=== PATIENT | female | born 2000 | race Caucasian/White ===

== ENCOUNTER 2022-01-14 19:14 | Emergency (ER) | payer MEDICAID, SELFPAY ==
[2022-01-14 19:18] VITALS: BP 135/81; PULSE 97; RESP 16; TEMP 36.9; O2SAT 100; BMI 29.3
--- NOTE | 2022-01-14 19:37 | CRLHL7_ITS ---
For Patients: As a result of the Cures Act, medical imaging exams and procedure reports are released immediately into your electronic medical record. You may view this report before your referring provider. If you have questions, please contact your health care provider. INDICATION: Patellar subluxation. COMPARISON: None. TECHNIQUE: Left knee 3 views. IMPRESSION: No acute fracture. Alignment is within normal limits. Joint spaces are maintained. Soft tissues are unremarkable. Dictated by Vin Link MD @ 01/14/2022 8:09:28 PM (Electronically Signed)
--- NOTE | 2022-01-14 19:38 | ED_ITS ---
HPI - Extremity Injury (Lower) General Chief Complaint: Extremity Pain/Injury, Lower Stated Complaint: Knee Injury Time Seen by Provider: 01/14/22 19:19 History of Present Illness HPI Narrative: This 21-year-old female comes in with an injury to her left knee that occurred just prior to arrival. She states that she was in the process of beginning to sit on a swivel chair. As she was flexing her knees she heard a pop and had sudden onset of pain and fell to the floor. She was able to get up and ambulate here but complains of pain in the medial aspect of her left patella. Related Data Previous Rx's Medication Instructions Recorded escitalopram oxalate 10 mg tablet 10 mg PO QDAY #90 tabs 01/13/22 lorazepam 1 mg tablet 1 mg PO BID PRN anxiety #20 tabs 01/13/22 Allergies Allergy/AdvReac Type Severity Reaction Status Date / Time No Known Drug Allergies Allergy Verified 01/14/22 19:25 Review of Systems Status of ROS: Reports: 10 or more systems reviewed and unremarkable except as noted in History and below Narrative: Constitutional: No fevers, no weight gain or loss. Eyes: No discharge. No vision changes. HENT: No congestion, no sore throat, no ear pain. Cardiovascular: No chest pain, no palpitations. Respiratory: No shortness of breath, no wheezes, no cough. Gastrointestinal: No abdominal pain, no vomiting, no diarrhea. Genitourinary: No dysuria, no hematuria. Musculoskeletal: Left knee pain as described above. Skin: No rashes, no pruritis. Neurological: No dizziness, weakness, sensory change, speech change. Endo/Heme/Allergies: No bruising or bleeding. No polydipsia. Pysch: no suicidality, no anxiety, no insomnia. All other systems reviewed and are negative. [facility] Medical History (Updated 01/14/22 @ 19:42 by Liban Leal MD) Panic attacks Exam Narrative: Exam Narrative: Constitutional: Well-developed, well-nourished, no acute distress. HEENT: Normocephalic, atraumatic. Neck: Normal range of motion. Nontender. Supple. Heart: Intact distal pulses. Lungs: No chest discomfort. No wheezes, rhonchi, or rales. Abdomen: Nontender. Back: Normal range of motion. Extremities: Left knee shows no sign of deformity or joint effusion. The patient has discomfort and was not cooperative to do a good ligament exam. She has tenderness on the medial aspect of the left patella and this is reproduced when putting some lateral stress on the patella. Skin: Intact. No rash. Warm. No erythema or pallor. Neurologic: No altered sensation. No weakness. Alert and oriented. Psychiatric: No suicidality. No anxiety or depression. No insomnia. Nursing notes and vitals signs are reviewed. Const: Vital Signs, click to edit/add: Vital Signs - 24 hr 01/14/22 19:18 Temperature 98.4 F Pulse Rate [Right Pulse Oximeter] 97 Respiratory Rate 16 Blood Pressure [Ri ght Upper Arm] 135/81 Pulse Oximetry 100 Oxygen Delivery Me thod Room Air Course Vital Signs Vital signs: Initial Vital Signs Temperature 98.4 F 01/14/22 19:18 Temperature Source Temporal Artery Scan 01/14/22 19:18 Pulse Rate 97 01/14/22 19:18 Respiratory Rate 16 01/14/22 19:18 Blood Pressure 135/81 01/14/22 19:18 Blood Pressure Mean 99 01/14/22 19:18 Blood Pressure Position Sitting 01/14/22 19:18 Pulse Oximetry 100 01/14/22 19:18 Oxygen Delivery Method 01/14/22 19:18 Vital Signs Temperature 98.4 F 01/14/22 19:18 Pulse Rate 97 01/14/22 19:18 Respiratory Rate 16 01/14/22 19:18 Blood Pressure 135/81 01/14/22 19:18 Pulse Oximetry 100 01/14/22 19:18 Oxygen Delivery Method 01/14/22 19:18 Temperature 98.4 F 01/14/22 19:18 Pulse Rate 97 01/14/22 19:18 Respiratory Rate 16 01/14/22 19:18 Blood Pressure 135/81 01/14/22 19:18 Pulse Oximetry 100 01/14/22 19:18 Oxygen Delivery Method 01/14/22 19:18 MDM - Extremity Injury (Lower) MDM Narrative Medical decision making narrative: This patient comes in with an injury to her left knee as described above. The mechanism of injury and her report of symptoms sound suspicious for a patellar subluxation. She was able to get up and ambulate here. She does have some tenderness when stressing her patella laterally at full extension of the knee. She may have stretched her medial retinaculum. X-ray imaging shows no acute findings by my review. Imaging Data XR L Knee: Radiologist's impression: No acute fracture. Alignment is within normal limits. Joint spaces are maintained. Soft tissues are unremarkable. Discharge Plan Discharge Clinical Impression: Patellar subluxation Patient Disposition: Home, Self-Care Condition: Stable Additional Instructions: Increase activity as tolerated. Use medication as needed and directed. If symptoms are recurrent follow-up with orthopedic clinic or return to emergency department. Prescriptions: No Action escitalopram oxalate 10 mg tablet 10 mg PO QDAY Qty: 90 0RF lorazepam 1 mg tablet 1 mg PO BID PRN (Reason: anxiety) Qty: 20 0RF Follow Up/Referrals: Vin Reyes MD [Primary Care Provider] - Stand Alone Forms: [facility] [place] Info Instructions
[2022-01-14 21:08] VITALS: BP 135/81; PULSE 97; RESP 16; TEMP 36.9
== END 2022-01-14 21:08 | disposition home or self-care (01) ==
LOC: ED 20:19
PROVIDERS: Emergency Provider Emergency Medicine Emergency Medical Services; PCP Family Medicine
DX: S83.001A Unspecified subluxation of right patella, initial encounter (principal)
CPT/HCPCS: 73562; 99283; 99284

== ENCOUNTER 2023-02-13 11:13 | Outpatient (CLI) | payer MEDICAID, SELFPAY | END 2023-02-13 11:14 | disposition home or self-care (01) | PROVIDERS: PCP Family Medicine; Visit Provider Family Medicine | DX: R51.9 Headache, unspecified (principal); R53.83 Other fatigue | CPT/HCPCS: 80048; 80061; 84439; 84443 ==

== ENCOUNTER 2023-09-04 10:53 | Outpatient (CLI) | payer BC, SELFPAY | END 2023-09-04 10:54 | disposition home or self-care (01) | PROVIDERS: PCP Nurse Practitioner Family; Visit Provider Nurse Practitioner Family | DX: Z00.00 Encounter for general adult medical examination without abnormal findings (principal); R10.9 Unspecified abdominal pain; R19.7 Diarrhea, unspecified; Z13.6 Encounter for screening for cardiovascular disorders | CPT/HCPCS: 80053; 80061; 82150; 83690; 84443; 85025; 86364 ==

== ENCOUNTER 2024-11-11 13:13 | Outpatient (CLI) | payer BC, SELFPAY | END 2024-11-11 13:14 | disposition home or self-care (01) | PROVIDERS: PCP Nurse Practitioner Family; Visit Provider Nurse Practitioner Family | DX: E83.52 Hypercalcemia (principal); R74.8 Abnormal levels of other serum enzymes; R63.4 Abnormal weight loss; D64.9 Anemia, unspecified | CPT/HCPCS: 80050; 80053; 82306; 83970; 84439; 84443; 85025 ==

== ENCOUNTER 2024-11-20 18:31 | Emergency (ER) | payer BC, SELFPAY ==
--- OUTSIDE RECORDS SUMMARY | 2024-11-20 18:33 | XMS_ITS | Encounter Summary ---
Author Organization [facility] Address [address] [address] Phone Care Team Providers Care Middleware Consultant Name Role Phone Unavailable Primary Care Provider Unavailabl e Encounter Details Date Type Department Care Team (Late st Contact Info) Description 10/20/2024 Telephone [facility] [address] [phone] Amara Gracia PA-C [address] [place] [address] Social History Tobacco Use Types Packs/Day Years Used Date Smoking Tobacco: Never Smokeless Tobacco: Never Alcohol Use Standard Drinks/Week Comments Not Currently 0 (1 standard drink = 0.6 oz pur e alcohol) socially PHQ-2 Answer Date Recorded PHQ-2 Total 0 04/22/2024 Comments Unknown Sex and Gender Information Value Date Recorded Sex Assigned at Not on file 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 If they are giving her all 16 tablets/month she can try taking this every other day as a preventative (can still take on her off day if needed) to see if this helps control her headaches better. Otherwise, if she does not feel that the Nurtec is working and the headaches are not managed she should make a follow-up appointment so that we can discuss alternatives. Thanks. * Telephone Encounter - Judit Thomson CMA - 10/20/2024 1:38 PM CDT Reviewed patient chart. Last OV 04/22/2024 (EF), return in 1 year. No follow up apt made. Continue Nurtec as needed. Called patient. She feels that her migraines doesn't go away. She has had neck pain, and is throwing up a lot more. She is having about 5 a month but have been more painful. Usually in the frontal lobe area. She is also having more pain behind the eyes. The are lasting for more than 24 hours. She has been trying to stay hydrated. Her main question is can she take more than 1 Nrutec at a time. She has taken 1 Nurtec today. Informed her that she cannot take more than 1 in a 24 hour period. She will go to the ER if migraines get worse. If migraines keep getting worse she will make a follow up apt with Amara. She verbalized understanding. All questions were answered, and she had no other concerns at this time. * Telephone Encounter - Judit Thomson CMA - 10/20/2024 1:38 PM CDT Patient called and requested a call back regarding questions she has about her migraines. Call back number [phone] documented in this encounter Plan of Treatment Not on file documented as of this encounter Visit Diagnoses Not on filedocumented in this encounter
--- OUTSIDE RECORDS SUMMARY | 2024-11-20 18:33 | XMS_ITS | Clinical Summary ---
Author Organization [email or web address] Address [address] [place] [address] Care Team Providers Care Cashier Greeter Name Role Phone Nonstaff, Doctor Unavailable Unavailable Vin Reyes MD Primary Care Provider + Allergies No known active allergies Medications triamcinolone (ARISTOCORT) 0.1 % ointmentIndicat ions:Rash Apply topically to affected area(s) 3 times daily. 30 g 9 Active escitalopram oxalate (Lexapro) 10 mg tabletIndicatio ns:anxiety with depression Take 10 mg by mouth once daily. Active Active Problems Problem Noted Date Diagnosed Date Adjustment disorder with anxiety 11/23/2008 Encounters Date Type Department Care Team Description 11/14/2024 Transcribe Orders [facility] [place] [phone] Aaliyah Woodson, WHITNEY from Last 3 Months Family History Relation Name Status Comments Father Alive Mother Alive Social History Tobacco Use Types Packs/Day Years Used Date Smoking Tobacco: Never Smokeless Tobacco: Never Tobacco Cessation:Counseling Given: Yes Alcohol Use Standard Drinks/Week Comments Yes 1 (1 standard drink = 0.6 oz pur e alcohol) Comments No Sex and Gender Information Value Date Recorded Sex Assigned at Not on file 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 Gender Identity Not on file Sexual Orientation Not on file 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 Not on file Not on file Not on file Obstetrics History Last Filed Vital Signs Vital Sign Reading Time Taken Comments Blood Pressure 123/80 11/27/2020 9:35 PM CDT Pulse 85 11/27/2020 9:35 PM CDT Temperature 37.6 C (99.6 F) 11/27/2020 8:00 PM CDT Respiratory Rate 18 11/27/2020 9:35 PM CDT Oxygen Saturation 100% 11/27/2020 9:35 PM CDT Inhaled Oxygen Concentration - - Weight 93.8 kg (206 lb 14.4 oz) 11/27/2020 8:27 PM CDT Height 158.8 cm (5' 2.5) 11/27/2020 8:26 PM CDT Body Mass Index 37.24 11/27/2020 8:26 PM CDT Plan of Treatment Upcoming Encounters Date Type Department Care Team (Late st Contact Info) Description 03/03/2025 1:10 PM WIRE PHOTO OPERATOR Telemedicine [facility] [address] [place], [place] [id number] Tarik Allred MD [address] [facility] [address] [place], [place] [id number] Health Maintenance Due Date Last Done Comments Tetanus booster 07/07/2010 Depression screening for age 12+ 2011 HIV for age 15-65 07/07/2014 HPV series for age 9-26 (1 - 3-dose series) 07/07/2014 Hepatitis C screening for ag e 18-79 07/07/2017 Hepatitis B series for 19+ ( 1 of 3 - 19+ 3-dose series) 07/07/2018 BMI (ht and wt on same day) for age 18+ 09/08/2019 09/07/2018 COVID-19 vaccine series ( season) 2023 Influenza Vaccine (#1) 2024 Pap test for age 21-65 09/03/2026 4, 09/04/2023 Pneumococcal series for age 6-49 Aged Out No longer eligible b ased on patient's age to complete this topic Procedures Procedure Name Priority Date/Time Associated Diagnosis Comments HPV HIGH RISK Routine 09/04/2023 11:00 AM CDT from Last 3 Months or Most Recently Relevant to Health Maintenance Results * (ABNORMAL) HPV HIGH RISK (09/04/2023 11:00 AM CDT) TYPE 16 Negative Negative 09/08/2023 2:09 PM CDT [facility] TYPE 18 Negative Negative 09/08/2023 2:09 PM CDT [facility] OTHER HIGH RISK TYPES Positive(A) Negative 09/08/2023 2:09 PM CDT [facility] Other (Cervical/Vagina l) 09/04/2023 11:00 AM CDT 09/07/2023 10:05 AM CDT Narrative [facility] - 09/08/2023 2:09 PM CDT Specimen is positive for the DNA of any one of, or combination of, the following high risk HPV types: 31, 33, 35, 39, 45, 51, 52, 56, 58, 59, 66, 68. HPV types 16 and 18 DNA were undetectable or below the pre-set threshold. Methodology: Chang Jamal 4800 HPV Test us Aaliyah Woodson NP MICROBIOLOGY Final Resu lt [facility] [address] [place] [phone], from Last 3 Months or Most Recently Relevant to Health Maintenance Insurance [facility] [phone] (Home) ATTN: DIANN HINSON [phone] [id number] [employer] Care Teams Cashier Greeter Relationship Specialty Start Date End Date Vin Reyes MD [address] [place] [address] PCP - General Family Practice 11/27/20 Nonstaff, Doctor NON STAFF DOCTOR 09/01/18
--- OUTSIDE RECORDS SUMMARY | 2024-11-20 18:33 | XMS_ITS | Clinical Summary ---
Author Organization [facility] Address [address] [address] Phone Care Team Providers Care Dry Janitor Name Role Phone Unavailable Primary Care Provider Unavailabl e Allergies Active Allergy Reactions Criticality Noted Date Comments Sumatriptan Anaphylaxis High 09/04/2023 Medications escitalopram (Lexapro) 10 MG tablet Take 10 mg by mouth one time a day. (Taking as needed) 2 Active rimegepant (Nurtec) 75 mg Tablet DisintegratingIn dications:Chroni c migraine without aura without status migrainosus, not intractable Take 1 Tablet by mouth one time as needed for Migraine for up to 1 dose. 16 Tablet 11 5 Active Active Problems Problem Noted Date Diagnosed Date Vertigo 09/18/2023 Overview (09/18/2023): She has a history of vertigo in 2017 or 2018. Back then, her symptoms were provoked by turning her head and she felt a severe sense of motion as if she was going to fall over. Over the past 2 months, her symptoms have recurred and she describes a sense of motion as well as lightheadedness. There is no associated chest pain, shortness of breath or diaphoresis, however she may occasionally feel like her heart is racing but thinks this may be because she is nervous about how she is feeling. No known triggers or positional factors. Symptoms are relatively brief and last up to 5 minutes in duration. This may occur 1-2 times per week. No associated nausea or headaches. She may have had a cold around the time of symptom recurrence, but otherwise no illnesses or changes to her general health. She stays hydrated and drinks at least 64 ounces of water a day. No falls or head trauma. No prior brain imaging. Today we discussed her symptoms. They do not seem consistent with orthostatic hypotension. They are not positional and feel different than her prior symptoms of vertigo in . No associated headache, therefore migrainous vertigo seems unlikely. Symptoms are brief, therefore as needed medication such as meclizine will not likely be useful. We discussed obtaining brain imaging since she has never had this done to evaluate for any structural cause of symptoms. If imaging is normal, will consider referral to ENT and/or PT for further evaluation and treatment recommendations. Assessment & Plan (09/18/2023 11:07 AM CDT): She has a history of vertigo in 2017 or 2018. Back then, her symptoms were provoked by turning her head and she felt a severe sense of motion as if she was going to fall over. Over the past 2 months, her symptoms have recurred and she describes a sense of motion as well as lightheadedness. There is no associated chest pain, shortness of breath or diaphoresis, however she may occasionally feel like her heart is racing but thinks this may be because she is nervous about how she is feeling. No known triggers or positional factors. Symptoms are relatively brief and last up to 5 minutes in duration. This may occur 1-2 times per week. No associated nausea or headaches. She may have had a cold around the time of symptom recurrence, but otherwise no illnesses or changes to her general health. She stays hydrated and drinks at least 64 ounces of water a day. No falls or head trauma. No prior brain imaging. Today we discussed her symptoms. They do not seem consistent with orthostatic hypotension. They are not positional and feel different than her prior symptoms of vertigo in . No associated headache, therefore migrainous vertigo seems unlikely. Symptoms are brief, therefore as needed medication such as meclizine will not likely be useful. We discussed obtaining brain imaging since she has never had this done to evaluate for any structural cause of symptoms. If imaging is normal, will consider referral to ENT and/or PT for further evaluation and treatment recommendations. -Brain MRI/MRA has been ordered. We will call you with results once completed. -You can consider meclizine 12.5 to 25 mg up to 3 times daily as needed for vertigo, however this may only be effective if your symptoms are more prolonged. -If imaging is normal and symptoms persist, we will consider having you see ENT for consultation. Panic attacks 03/20/2023 03/20/2023 Chronic migraine without aur a without status migrainosus, not intractable 03/20/2023 Overview (04/22/2024): She has had headaches since childhood which were previously frequent and severe, but stopped for quite a few years and recently returned over the past couple of years. They have been occurring approximately 2 days/week. Her headaches are bifrontal and behind her eyes and described as a throbbing and pulsating. Sometimes they can radiate to the bioccipital region and involve the base of her skull/neck. They can reach an 8/10. They typically last 3 to 4 hours in duration. No positional factors to her headaches. She reports associated phonophobia, photophobia, and occasional lightheadedness. She has only had 1 occurrence where she was nauseous and vomited. They are aggravated by loud noises and bright lights. Sleep can be helpful. They can occur at anytime of day. Only trigger she has found include too much sleep and possibly stress. To reduce stress she will take a bath, play games or watch television. No prior head trauma or brain imaging. She has a history of anxiety which has been well controlled on Lexapro. She sleeps 6 to 8 hours per night. She does snore. She drinks caffeine 2-3 times per week and this does not seem to affect a headache. She drinks at least 64 ounces of water daily. She had a dilated eye exam about a year ago when her headaches worsened and this was reportedly normal. Menstrual cycles are irregular, but her headaches do not seem to correlate with these. She limits Tylenol to 3 days/week, therefore medication overuse headache seems unlikely. She trialed diclofenac 75 mg as needed which was not helpful. Ibuprofen does not help. Tylenol can reduce the intensity of the headache. Sumatriptan caused throat pain and redness, therefore this has been marked as an allergy. She has never been on any prescription preventative medication for headache. She does not feel that she needs a daily medication at this time. She will continue Nurtec as needed since this has been helpful and well tolerated. If future headache preventatives are needed we discussed that she can try taking her Nurtec every other day. Could also consider tramadol or topiramate in the future if needed. 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 They have been occurring approximately 2 days/week. Her headaches are bifrontal and behind her eyes and described as a throbbing and pulsating. Sometimes they can radiate to the bioccipital region and involve the base of her skull/neck. They can reach an 8/10. They typically last 3 to 4 hours in duration. No positional factors to her headaches. She reports associated phonophobia, photophobia, and occasional lightheadedness. She has only had 1 occurrence where she was nauseous and vomited. They are aggravated by loud noises and bright lights. Sleep can be helpful. They can occur at anytime of day. Only trigger she has found include too much sleep and possibly stress. To reduce stress she will take a bath, play games or watch television. No prior head trauma or brain imaging. She has a history of anxiety which has been well controlled on Lexapro. She sleeps 6 to 8 hours per night. She does snore. She drinks caffeine 2-3 times per week and this does not seem to affect a headache. She drinks at least 64 ounces of water daily. She had a dilated eye exam about a year ago when her headaches worsened and this was reportedly normal. Menstrual cycles are irregular, but her headaches do not seem to correlate with these. She limits Tylenol to 3 days/week, therefore medication overuse headache seems unlikely. She trialed diclofenac 75 mg as needed which was not helpful. Ibuprofen does not help. Tylenol can reduce the intensity of the headache. Sumatriptan caused throat pain and redness, therefore this has been marked as an allergy. She has never been on any prescription preventative medication for headache. She does not feel that she needs a daily medication at this time. She will continue Nurtec as needed since this has been helpful and well tolerated. If future headache preventatives are needed we discussed that she can try taking her Nurtec every other day. Could also consider tramadol or topiramate in the future if needed. -Continue Nurtec as needed. -Maintain a headache diary. -Maintain routine meals, hydration and sleep patterns. -Limit abortive medication use to 3 times per week or less. -Report any worsening headaches. Assessment & Plan (09/18/2023 11:05 AM CDT): She has had headaches since childhood which were previously frequent and severe, but stopped for quite a few years and recently returned over the past couple of years. They have been occurring approximately 2 days/week. Her headaches are bifrontal and behind her eyes and described as a throbbing and pulsating. Sometimes they can radiate to the bioccipital region and involve the base of her skull/neck. They can reach an 8/10. They typically last 3 to 4 hours in duration. No positional factors to her headaches. She reports associated phonophobia, photophobia, and occasional lightheadedness. She has only had 1 occurrence where she was nauseous and vomited. They are aggravated by loud noises and bright lights. Sleep can be helpful. They can occur at anytime of day. Only trigger she has found include too much sleep and possibly stress. To reduce stress she will take a bath, play games or watch television. No prior head trauma or brain imaging. She has a history of anxiety which has been well controlled on Lexapro. She sleeps 6 to 8 hours per night. She does snore. She drinks caffeine 2-3 times per week and this does not seem to affect a headache. She drinks at least 64 ounces of water daily. She had a dilated eye exam about a year ago when her headaches worsened and this was reportedly normal. Menstrual cycles are irregular, but her headaches do not seem to correlate with these. She limits Tylenol to 3 days/week, therefore medication overuse headache seems unlikely. She trialed diclofenac 75 mg as needed which was not helpful. Ibuprofen does not help. Tylenol can reduce the intensity of the headache. Sumatriptan caused throat pain and redness, therefore this has been marked as an allergy. She has never been on any prescription preventative medication for headache. She was previously prescribed propranolol as a headache preventative, however she did not take this as she thought it was just for high blood pressure. She is currently dealing with increased dizziness and vertigo, therefore we will hold off on propranolol. She does not feel that she needs a daily medication at this time, therefore I will prescribe her Nurtec to trial as needed since triptans are now contraindicated. If future headache preventatives are needed, would consider topiramate as a next step. -Nurtec as needed. -We will hold off on any daily preventative at this time. -Maintain a headache diary. -Maintain routine meals, hydration and sleep patterns. -Limit abortive medication use to 3 times per week or less. -Report any worsening headaches. 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 They had been occurring approximately 5 days/week on average until the past week or so where they have been less frequent at approximately 2 days/week. Her headaches are bifrontal and behind her eyes and described as a throbbing and pulsating. Sometimes they can radiate to the bioccipital region and involve the base of her skull/neck. They can reach an 8/10. They typically last 3 to 4 hours in duration. No positional factors to her headaches. She reports associated phonophobia, photophobia, and occasional lightheadedness. She has only had 1 occurrence where she was nauseous and vomited. They are aggravated by loud noises and bright lights. Sleep can be helpful. They can occur at anytime of day. Only trigger she has found include too much sleep and possibly stress. To reduce stress she will take a bath, play games or watch television. No prior head trauma or brain imaging. She has a history of anxiety which has been well controlled on Lexapro. She sleeps 6 to 8 hours per night. She drinks caffeine 2-3 times per week and this does not seem to affect a headache. She drinks at least 64 ounces of water daily. She had a dilated eye exam about a year ago when her headaches worsened and this was reportedly normal. Menstrual cycles are irregular, but her headaches do not seem to correlate with these. She limits Tylenol to 3 days/week, therefore medication overuse headache seems unlikely. Review of prior records suggest that ice packs and stretching of her neck/back can be helpful at times. She trialed diclofenac 75 mg as needed which was not helpful. Ibuprofen does not help. Tylenol can reduce the intensity of the headache. She has never been on any prescription preventative medication for headache. Today we discussed her headaches in detail. I do feel they are consistent with migraine without aura. Given that her neurologic examination is nonfocal we will hold off on any brain imaging at this time. I would like her to have an effective abortive medication so she will start with a trial of Imitrex. We also discussed preventatives including a beta-lamberto like propranolol or anticonvulsant like topiramate. We will avoid TCAs due to potential interaction with her Lexapro. Potential side effects were reviewed. After our discussion she decided she would consider trial of low-dose propranolol so I have sent this to her pharmacy. She will track her headaches and follow-up in 2 to 3 months for reevaluation. -You have been prescribed Imitrex to take as needed for headache. Take at headache onset with or without Tylenol or Aleve. -You have also been prescribed a trial of propranolol. Take 10 mg twice daily as directed. Report any intolerable side effects to my office. -We will request your eye examination for my review. -Maintain a headache diary. We will review this together at your next visit. -Maintain routine meals, exercise, hydration (at least 64 ounces of water a day, and sleep patterns. -Limit ANY abortive medication use to 3 times per week or less. This includes both prescription and [id number] medication. -Report any worsening headaches. Tachycardia 03/20/2023 Adjustment disorder with anxiety 11/23/2008 03/20/2023 Encounters Date Type Department Care Team Description 10/20/2024 Telephone [facility] [address] [phone] Amara Gracia PA-C 09/05/2024 Telephone [facility] [address] [facility] [address] [place] [phone] Amara Gracia PA-C Prior Authorization ([facility] ) from Last 3 Months Medical History Medical History Date Comments Anxiety disorder Family History Medical History Relation Comments Other Sister post-traumatic h eadaches Relation Status Comments Sister Social History Tobacco Use Types Packs/Day Years Used Date Smoking Tobacco: Never Smokeless Tobacco: Never Tobacco Cessation:Counseling Given: Not Answered Alcohol Use Standard Drinks/Week Comments Not Currently 0 (1 standard drink = 0.6 oz pur e alcohol) socially PHQ-2 Answer Date Recorded PHQ-2 Total 0 04/22/2024 Comments Unknown Sex and Gender Information Value Date Recorded Sex Assigned at Not on file Legal Sex Female 8:21 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 Gender Identity Not on file Sexual Orientation Not on file Obstetrics History Last Filed Vital Signs Vital Sign Reading Time Taken Comments Blood Pressure 124/82 04/22/2024 10:22 AM MACHINE 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 Pulse 111 04/22/2024 10:22 AM MACHINE 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 Temperature 36.9 C (98.4 F) 04/27/2022 8:33 PM MACHINE 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 Respiratory Rate 20 03/20/2023 11:26 AM MACHINE 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 Oxygen Saturation 98% 04/22/2024 10:22 AM MACHINE 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 Inhaled Oxygen Concentration - - Weight 94.6 kg (208 lb 8 oz) 04/22/2024 10:22 AM MACHINE 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 Height - - Body Mass Index - - Plan of Treatment Health Maintenance Due Date Last Done Comments Cervical Cancer Screening 1999 Last pap w/ HPV Testing 1999 Last pap w/o HPV Testing 1999 HPV Vaccine (Standing Order) (1 - 3-dose series) 07/07/2014 Hepatitis B Vaccine (Standin g Order) (1 of 3 - 19+ 3-dose series) 07/07/2018 PERTUSSIS (Standing Order) 07/07/2018 TETANUS (Standing Order) 07/07/2018 Pneumococcal/PCV20 Vaccine: Pediatrics (2-5 yrs) and At-Risk Patients (6-49 yrs) (Standing Order) Aged Out No longer eligible b ased on patient's age to complete this topic Insurance [facility]
[2024-11-20 18:49] VITALS: BP 145/80; PULSE 127; RESP 16; TEMP 36.4; O2SAT 98
[2024-11-20] MEDS: PROPRANOLOL 20 MG TABLET PO (20:37)
[2024-11-20 20:40] VITALS: BP 141/69; PULSE 117; RESP 18; O2SAT 100
--- NOTE | 2024-11-20 20:46 | ED_ITS ---
HPI - General Adult General Date Seen: 11/20/24 Chief complaint: Nausea/Vomiting Stated complaint: Unable to keep food down, dizzyness Time Seen by Provider: 11/20/24 19:45 History of Present Illness HPI narrative: Patient is a 24-year-old young woman here with her significant other and her mother. She was in clinic on November 11 with a number of symptoms strongly suggestive of hyperthyroidism. She has had significant unintentional weight loss, hair loss, forgetfulness, anxiety, weakness. She was noted to have a mildly elevated calcium at that time as well. A referral was put in for endocrine but she says that appointment is not until February. She does have upcoming imaging appointments here for a thyroid ultrasound and abdominal CT scan. She says there was some mention of possible colon cancer, but they are not exactly sure what that is about. She comes in today because she says she is feeling of worse she had a couple episodes of vomiting earlier today although she does not feel nauseated now. She also notes that she feels more weak, had difficulty opening her water bottle earlier today. Related Data Home Medications ?Medication ?Instructions ?Recorded ?Confirmed rimegepant 75 mg disintegrating 75 mg PO DAILY PRN 11/1111/24/24 tablet Previous Rx's ?Medication ?Instructions ?Recorded escitalopram oxalate 10 mg tablet 10 mg PO DAILY #30 t abs 11/11/24 lorazepam 1 mg tablet 1 mg PO BID PRN anxiety #20 tabs 11/11/24 methimazole 10 mg tablet 20 mg (2 x 10 mg) PO DAILY # 60 tabs 11/20/24 ondansetron 4 mg disintegrating 4 mg PO Q8H PRN nausea and 11/20/24 tablet vomiting #7 tabs propranolol 20 mg tablet 20 mg PO BID #30 tabs Allergies Allergy/AdvReac Type Severity Reaction Status Date / Time sumatriptan (From Imitrex) Allergy Anaphylaxis Verified 11/11/24 12:27 Review of Systems Status of ROS: Reports: 10 or more systems reviewed and unremarkable except as noted in History and below [facility] Medical History (Updated 11/24/24 @ 12:58 by Mini Avalos PA-C) Migraine ?G43.909 - Migraine, unspecified, not intractable, without status migrainosus (ICD-10) Chronic daily headache ?R51.9 - Headache, unspecified (ICD-10) Major depression, recurrent, chronic ?F33.9 - Major depressive disorder, recurrent, unspecified (ICD-10) Irritable bowel syndrome ?K58.9 - Irritable bowel syndrome without diarrhea (ICD-10) Generalized anxiety disorder ?F41.1 - Generalized anxiety disorder (ICD-10) Dog bite of right hand ?S61.451A - Open bite of right hand, initial encounter (ICD-10) ?W54.0XXA - Bitten by dog, initial encounter (ICD-10) Panic attacks ?F41.0 - Panic disorder [episodic paroxysmal anxiety] (ICD-10) Surgical History No pertinent past surgical history ?Z78.9 - Other specified health status (ICD-10) Family History Maternal Grandfather Heart disease Paternal Grandfather Cancer Paternal Grandmother Breast cancer Maternal Grandmother Myelofibrosis 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 Alcohol 4 drinks on average per month. No illicit drug use. What is your current living situation?: I presently have a place to live Problems where you live: no known problems Problems where you live details: NA In the past 12 months, utilities in danger of being shut off: no In past 12 months, lack of transportation kept you from medical appts, meetings, work, or getting things needed for daily living: no In the past 12 mos, have been you worried that your food would run out before you had money to buy more?: never true In the past 12 mos, the food you bought just didn't last and you didn't have money to buy more?: never true Highest level of school completed/degree received: Bachelor's degree Smoking Status: Never smoker Do you use any of these nicotine containing products: None How often do you have a drink containing alcohol: monthly or less AUDIT-C Alcohol total score: 1 Non-prescribed substance use: denies use Caffeine: Yes (Pop/iced coffee) How often does anyone, including family, friends and others, physically hurt you : never How often does anyone, including family, friends and others, insult or talk down to you: never How often does anyone, including family, friends and others, threaten you with harm: never How often does anyone, including family, friends and others, scream or curse at you: never service: No Exam Narrative: Exam Narrative: Vital signs reviewed In general, alert, nontoxic young woman. Head: Normocephalic, atraumatic. Eyes: Sclera clear. Pupils equal and reactive. ENT: Mucous membranes moist. Neck: Supple without adenopathy. Obvious goiter, thyroid is nontender to palpation, no obvious masses. No stridor. Heart: Tachycardic, regular. No obvious murmur. Lungs: Clear. No increased work of breathing, crackles or wheezes. Abdomen: Soft, nontender to palpation. Extremities: Well perfused, pulses intact. No significant edema. Neurologic: Alert, conversant. Speech fluent, face symmetric. Moves all extremities equally. Skin: Warm, dry well perfused. Affect: Normal. Const: Vital Signs, click to edit/add: Vital Signs - 24 hr 11/20/24 18:49 11/20/24 20:40 11/20/24 20:40 Temperature 97.6 F Pulse Rate 117 H Pulse Rate [Pulse Oximeter] 127 H Respiratory Rate 16 18 Blood Pressure 141/69 H Blood Pressure [Ri ght Upper Arm] 145/80 H Pulse Oximetry 98 100 100 Oxygen Delivery Me thod Room Air 11/20/24 21:01 11/20/24 22:01 11/20/24 23:15 Temperature 98.2 F 98.2 F Pulse Rate 118 H 100 Pulse Rate [Pulse Oximeter] 100 Respiratory Rate 18 18 18 Blood Pressure 150/67 H 133/63 Blood Pressure [Ri ght Upper Arm] 129/74 Pulse Oximetry 100 100 100 Oxygen Delivery Me thod Room Air 11/20/24 23:15 Temperature 98.2 F Pulse Rate Pulse Rate [Pulse Oximeter] 100 Respiratory Rate 18 Blood Pressure Blood Pressure [Ri ght Upper Arm] 129/74 Pulse Oximetry Oxygen Delivery Me thod Course Course ED Course: I reviewed her records, she presents here with tachycardia, she is mildly hypertensive, however she is neurologically normal, physical exam is notable only for tachycardia and goiter. I do not find evidence of severe uncontrolled hyperthyroidism, although she is clearly hyperthyroid, her labs done on the showed a TSH near 0 and a free T4 greater than 7. I do think it is worthwhile to recheck her calcium and make sure that this is not significantly more el evated. She did have a mildly elevated PTH as well. She was given Lexapro and lorazepam if she does have a history of anxiety and she has been on these medicines before, but she says she did not fill them because she does not feel she needs treatment for anxiety. They are understandably frustrated by the delay in follow-up with endocrinology and are not sure how to be managing this. For darby, I gave her dose of propanolol, this improved her tachycardia from 127 to 100. Her labs are generally stable compared to the . Her calcium is just a little bit higher at 12 compared to 11.6, her T4 remains markedly elevated at greater than 7. [facility] does not have an pearl glue operator who is available for consultations, but I was able to consult with an pearl glue operator through the [employer] system. I spoke with Dr. Blum, she recommended getting thyroid antibodies, she overall felt to be reasonable to start methimazole tonight in addition to giving her propanolol to help manage symptoms while the methimazole is starting to work. She said that she would look at her schedule and talk with her clinical research director to try and prioritize this patient for a more timely follow-up appointment. In the meantime, she has a thyroid ultrasound scheduled for next week. Her hypercalcemia is mild and I do not believe significantly symptomatic although this may be contributing to some of her feelings of weakness. I do not think this needs to be urgently treated at this time. I reviewed all these medicines with her, reviewed the methimazole is teratogenic, she is not currently on any control but has had multiple recent negative test. Discussed with her that she would want to make sure she prevents while taking this medicine. I am also prescribing some Zofran for her as she has had difficulty today with nausea. She declines any here. I sent a message to her primary doctor, asking her to follow up on the thyroid antibodies. Per endocrinology, she suspects this is Graves disease but positive antibodies would be confirmatory for this. If these are negative, I would recommend review further with endocrine. Vital Signs Vital signs: Initial Vital Signs Temperature 97.6 F 08/03/25 18:49 Temperature Source Temporal Artery Scan 11/20/24 18:49 Pulse Rate 127 H 11/20/24 18:49 Respiratory Rate 16 11/20/24 18:49 Blood Pressure 145/80 H 11/20/24 18:49 Blood Pressure Mean 101 11/20/24 18:49 Blood Pressure Position Sitting 11/20/24 18:49 Pulse Oximetry 98 11/20/24 18:49 Oxygen Delivery Method Room Air 11/20/24 18:49 Vital Signs Temperature 97.6 F 11/20/24 18:49 Pulse Rate 127 H 11/20/24 18:49 Respiratory Rate 16 11/20/24 18:49 Blood Pressure 145/80 H 11/20/24 18:49 Pulse Oximetry 98 11/20/24 18:49 Oxygen Delivery Method Room Air 11/20/24 18:49 Temperature 98.2 F 11/20/24 23:15 Pulse Rate 100 11/20/24 23:15 Respiratory Rate 18 11/20/24 23:15 Blood Pressure 129/74 11/20/24 23:15 Pulse Oximetry 100 11/20/24 23:15 Oxygen Delivery Method Room Air 11/20/24 23:15 Medications Administered Medications: Discontinued Medications Generic Name Dose Route Start Last Admin Trade Name Freq PRN Reason Stop Dose Admin Propranolol HCl 20 mg 11/20/24 20:19 11/20/24 20:37 Propranolol 20 Mg Tablet PO 11/20/24 20:20 20 mg ONCE ONE Administration Medical Decision Making Lab Data Labs: Lab Results 11/20/24 11/21/24 Range/Units 20:37 00:00 WBC 7.44 (4.50-11.00) K/uL RBC 3.93 L (4.00-5.20) m/uL Hgb 10.4 L (12.0-16.0) gm/dL Hct 31.4 L (33.0-51.0) % MCV 80 (80-100) fL MCH 27 (26-34) pg MCHC 33 (32-36) gm/dL RDW Coeff of Filippo 13.7 (11.5-15.5) % Plt Count 283 (140-440) K/uL Neut % (Auto) 25.3 L (42.0-72.0) % Lymph % (Auto) 55.6 H (20-44) % Dawson % (Auto) 14.5 H (0.0-11.0) % Eos % (Auto) 4.3 (0.0-7.0) % Baso % (Auto) 0.3 (0.0-3.0) % Neut # (Auto) 1.90 (1.7-7.0) K/uL Lymph # (Auto) 4.10 H (0.90-2.90) K/uL Dawson # (Auto) 1.10 H (0.00-0.90) K/UL Eos # (Auto) 0.32 (0.00-0.50) K/uL Baso # (Auto) 0.02 (0.00-0.30) K/uL Abs Immat Gran (auto) 0.00 (0.00-0.30) K/uL Imm/Tot Granulo (auto) 0.0 % Sodium 138 (135-149) mmol/L Potassium 3.8 (3.6-5.1) mmol/L Chloride 101 (96-114) mmol/L Carbon Dioxide 29 (20-32) mmol/L Anion Gap 8 (7-15) mEq/L BUN 16 (5-24) mg/dL Creatinine 0.5 (0.5-1.5) mg/dL Estimated GFR 133 ml/min Glucose 83 (60-115) mg/dL Calcium 12.0 H (8.4-10.6) mg/dL Free T4 > 6.99 H (0.70-1.85) ng/dL Free T3 pg/dL >32.5 H (2.5-4.3) pg/mL Thyroperoxidase Ab 0.8 (0.0-9.0) IU/mL Thyroglobulin Antibody <1.5 (0.0-4.0) IU/mL Anti-TSH Antibody 17.30 H (<=0.54) IU/L Discharge Plan Discharge Clinical Impression: Hyperthyroidism, Serum calcium elevated Patient Disposition: Home, Self-Care Condition: Improved Instructions: Hypercalcemia (ED), Graves Disease (ED) Additional Instructions: New medications: Methimazole, this medication lowers the circulating thyroid hormone in your system. Take this once a day. Propanolol, this medicine helps with symptoms such as fast heart rate, jitteriness, etcetera. Take this twice a day. Zofran, this medicine helps with nausea. Take this as needed. As we discussed, methimazole is not safe in . Please make sure that your taking measures to avoid while on this medication. I talked with Dr. Blum, on-call for endocrine through the [employer] system. She said that she would talk with her team and try to prioritize an appointment in a timely manner. You should follow-up in 1 week for repeat thyroid studies, and I also ordered thyroid antibodies today which I will ask Tarik to follow-up on. With regard tear ingrown toenails, Dr. Kaufman is our local it auditor. You can call the [facility] [phone] to schedule with him. Prescriptions: New propranolol 20 mg tablet 20 mg PO BID Qty: 30 2RF methimazole 10 mg tablet 20 mg PO DAILY Qty: 60 2RF ondansetron 4 mg tablet,disintegrating 4 mg PO Q8H PRN (Reason: nausea and vomiting) Qty: 7 0RF No Action escitalopram oxalate 10 mg tablet 10 mg PO DAILY Qty: 30 0RF lorazepam 1 mg tablet 1 mg PO BID PRN (Reason: anxiety) Qty: 20 0RF rimegepant 75 mg tablet,disintegrating 75 mg PO DAILY PRN Rx Instructions: Take 1 Tablet by mouth one time as needed for Migraine for up to 1 dose. Follow Up/Referrals: Aaliyah Woodson, FILLETER, GIS ENGINEER [Primary Care Provider, Family Practice] Stand Alone Forms: Attention Pointth Info Instructions
[2024-11-20 20:52] LABS: Hematocrit 31.4 % (33.0-51.0); Hemoglobin* 10.4 gm/dL (12.0-16.0); Immature Granulocytes Abs Auto 0.00 K/uL (0.00-0.30); Immature Granulocytes Pct Auto 0.0 %; Mean Corpuscular HGB Conc 33 gm/dL (32-36); Mean Corpuscular Hemoglobin 27 pg (26-34); Mean Corpuscular Volume 80 fL (80-100); RDW Coefficient of Variation % 13.7 % (11.5-15.5); Red Blood Count 3.93 m/uL (4.00-5.20); White Blood Count* 7.44 K/uL (4.50-11.00)
[2024-11-20 20:58] LABS: Lymphocytes Absolute Auto 4.10 K/uL (0.90-2.90); Slide Review Reflex No
[2024-11-20 21:00] LABS: Chloride* 101 mmol/L (96-114); Potassium* 3.8 mmol/L (3.6-5.1); Sodium* 138 mmol/L (135-149)
[2024-11-20 21:01] VITALS: BP 150/67; PULSE 118; RESP 18; O2SAT 100
[2024-11-20 21:03] LABS: Anion Gap 8 mEq/L (7-15); Blood Urea Nitrogen* 16 mg/dL (5-24); Calcium* 12.0 mg/dL (8.4-10.6); Carbon Dioxide* 29 mmol/L (20-32); Creatinine* 0.5 mg/dL (0.5-1.5); Estimated Glomerular Filt Rate 133 ml/min; Glucose* 83 mg/dL (60-115)
[2024-11-20 21:36] LABS: Free T4 Free Thyroxine* > 6.99 ng/dL (0.70-1.85)
[2024-11-20 22:01] VITALS: BP 133/63; PULSE 100; RESP 18; TEMP 36.8; O2SAT 100
[2024-11-20 23:15] VITALS: BP 129/74; PULSE 100; RESP 18; TEMP 36.8; O2SAT 100
[2024-11-22 02:54] LABS: TPO Antibody 0.8 IU/mL (0.0-9.0)
[2024-11-22 07:09] LABS: Free T3 >32.5 pg/mL (2.5-4.3)
[2024-11-22 17:23] LABS: Thyroid Stimulating IgG (TSI) 17.30 IU/L (<=0.54)
== END 2024-11-20 23:16 | disposition home or self-care (01) ==
PROVIDERS: Emergency Provider Emergency Medicine; PCP Nurse Practitioner Family
DX: E03.9 Hypothyroidism, unspecified (principal); E83.52 Hypercalcemia
CPT/HCPCS: 36415; 80048; 84439; 84445; 84481; 85025; 86376; 86800; 94761; 99283; 99285; A9270

== ENCOUNTER 2024-11-22 07:05 | Outpatient (CLI) | payer BC, SELFPAY ==
--- NOTE | 2024-11-22 07:15 | CRLHL7_ITS ---
For Patients: As a result of the Century Cures Act, medical imaging exams and procedure reports are released immediately into your electronic medical record. You may view this report before your referring provider. If you have questions, please contact your health care provider. INDICATION: ABNORMAL TSH, ELEVATED CALCIUM, NECK FULLNESS COMPARISON: none TECHNIQUE: Centeno scale and color Doppler images were acquired of the thyroid gland. FINDINGS: The thyroid gland demonstrates heterogeneous echogenicity and is enlarged. The right lobe measures 7.4 x 2.8 x 3.5 cm and the left lobe measures 5.8 x 2.3 x 2.8 cm in size. The isthmus measures 1.4 cm. There are no suspicious masses or nodules. The color Doppler images demonstrate diffusely increased vascularity. There is no evidence of cervical lymphadenopathy or parathyroid mass. IMPRESSION: Enlarged and hypervascular thyroid. Dictated by Vin Dewey MD @ 11/22/2024 9:26:25 AM (Electronically Signed)
--- NOTE | 2024-11-22 07:15 | CRLHL7_ITS ---
For Patients: As a result of the Century Cures Act, medical imaging exams and procedure reports are released immediately into your electronic medical record. You may view this report before your referring provider. If you have questions, please contact your health care provider. INDICATION: Abnormal levels of serum enzymes COMPARISON: none TECHNIQUE: Real time thomas scale imaging and color Doppler analysis was performed of the right upper quadrant. FINDINGS: The patient`s liver is of normal size and has uniform echogenicity. There is a normal appearance of the hepatic IVC and proximal abdominal aorta. There is no evidence of ascites. The gallbladder is of normal size and there is no evidence of intraluminal stones or sludge. The gallbladder wall measures 2 mm in thickness. The common bile duct is of normal size and measures 5 mm in diameter at the level of the rupal hepatis. The pancreas appears normal. There is no evidence of a stone or hydronephrosis within the right kidney. The right kidney measures 11.7 cm in length. IMPRESSION: Normal right upper quadrant ultrasound. Dictated by Vin Dewey MD @ 11/22/2024 9:25:10 AM (Electronically Signed)
== END 2024-11-22 07:06 | disposition home or self-care (01) ==
LOC: US 07:06
PROVIDERS: PCP Nurse Practitioner Family; Visit Provider Nurse Practitioner Family
DX: R74.8 Abnormal levels of other serum enzymes (principal); E83.52 Hypercalcemia; R22.1 Localized swelling, mass and lump, neck
CPT/HCPCS: 76536; 76705

== ENCOUNTER 2024-11-23 11:40 | Inpatient (IN) | payer BC, SELFPAY ==
[2024-11-23] VITALS (32 sets, daily range): BP systolic 124–148; BP diastolic 46–85; PULSE 112–125; RESP 7–24; TEMP 36.4–36.9; O2SAT 95–98; BMI 23.0; BMI 24.3
--- OUTSIDE RECORDS SUMMARY | 2024-11-23 11:42 | XMS_ITS | Encounter Summary ---
Author Organization [facility] Address [address] [address] Phone Care Team Providers Care Cake Press Operator Name Role Phone Unavailable Primary Care Provider Unavailabl e Encounter Details Date Type Department Care Team (Late st Contact Info) Description 10/20/2024 Telephone [facility] [address] [phone] Amara Gracia PA-C [address] [place] [address] Social History Tobacco Use Types Packs/Day Years Used Date Smoking Tobacco: Never Smokeless Tobacco: Never Alcohol Use Standard Drinks/Week Comments Not Currently 0 (1 standard drink = 0.6 oz pur e alcohol) socially PHQ-2 Answer Date Recorded PHQ-2 Total 0 04/22/2024 Comments Unknown Sex and Gender Information Value Date Recorded Sex Assigned at Not on file Legal Sex Female 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 Call back number [phone] documented in this encounter Plan of Treatment Not on file documented as of this encounter Visit Diagnoses Not on filedocumented in this encounter
--- OUTSIDE RECORDS SUMMARY | 2024-11-23 11:42 | XMS_ITS | Clinical Summary ---
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 Gender Identity Not on file Sexual Orientation [...] st Contact Info) Description 03/03/2025 1:10 PM SCRAP MATERIALS BUYER Telemedicine [facility] [address] [place], [place] [phone] Tarik Allred MD [address] [place], [place] [phone] Health Maintenance Due Date Last Done Comments [...] 16 Negative Negative 09/08/2023 2:09 PM CDT [facility] TYPE 18 Negative Negative 09/08/2023 2:09 PM CDT [facility] OTHER HIGH RISK TYPES Positive(A) Negative 09/08/2023 2:09 PM CDT [facility] Other (Cervical/Vagina l) 09/04/2023 11:00 AM CDT 09/07/2023 10:05 AM CDT Narrative [facility] - 09/08/2023 2:09 PM CDT Specimen [...] Aaliyah Woodson NP MICROBIOLOGY Final Resu lt [facility] [address] [place] [phone], from Last 3 Months or Most Recently Relevant to Health Maintenance Insurance [facility] [phone] (Home) ATTN: DIANN HINSON [phone] [phone] [employer] Care Teams Mold Chipper Relationship Specialty Start Date End Date Vin Reyes MD [address] [place] [address] PCP - General Family Practice 11/27/20 Nonstaff, Doctor NON STAFF DOCTOR 09/01/18
--- OUTSIDE RECORDS SUMMARY | 2024-11-23 11:42 | XMS_ITS | Clinical Summary ---
Author Organization [facility] Address [address] [address] Phone Care Team Providers Care Review Assistant Name Role Phone Unavailable Primary Care Provider [...] needed. Assessment & Plan (04/22/2024 10:45 AM BIG DATA PLATFORM ARCHITECT): She has had headaches since childhood which [...] headaches. Assessment & Plan (03/20/2023 12:23 PM BIG DATA PLATFORM ARCHITECT): She has had headaches since childhood which [...] or less. This includes both prescription and [id number] medication. -Report any worsening headaches. Tachycardia 03/20/2023 Adjustment disorder with anxiety 11/23/2008 03/20/2023 Encounters Date Type Department Care Team Description 10/20/2024 Telephone [facility] [address] [phone] Amara Gracia PA-C 09/05/2024 Telephone [facility] [address] [facility] [address] [place] [phone] Amara Gracia PA-C Prior Authorization ([facility] ) from Last 3 Months Medical History [...] on file Legal Sex Female 8:21 PM BIG DATA PLATFORM ARCHITECT Gender Identity Not on file Sexual Orientation Not on file Obstetrics History Last Filed Vital Signs Vital Sign Reading Time Taken Comments Blood Pressure 124/82 04/22/2024 10:22 AM BIG DATA PLATFORM ARCHITECT Pulse 111 04/22/2024 10:22 AM BIG DATA PLATFORM ARCHITECT Temperature 36.9 C (98.4 F) 04/27/2022 8:33 PM BIG DATA PLATFORM ARCHITECT Respiratory Rate 20 03/20/2023 11:26 AM BIG DATA PLATFORM ARCHITECT Oxygen Saturation 98% 04/22/2024 10:22 AM BIG DATA PLATFORM ARCHITECT Inhaled Oxygen Concentration - - Weight 94.6 kg (208 lb 8 oz) 04/22/2024 10:22 AM BIG DATA PLATFORM ARCHITECT Height - - Body Mass Index - [...] patient's age to complete this topic Insurance [facility]
--- NOTE | 2024-11-23 12:17 | ED_ITS ---
HPI - General Adult General Time Seen by Provider: 12:17 Date Seen: 11/23/24 Chief complaint: Weakness Stated complaint: weakness Time Seen by Provider: 11/23/24 12:02 Source: patient and RN notes reviewed Mode of arrival: ambulatory Limitations: no limitations History of Present Illness HPI narrative: This 24-year-old female with recent diagnosis of hyperthyroidism is coming in with concerns of weakness. She is not able to eat, getting more weak. She is having difficulty getting up on her own. She is having nausea and difficulty with vomiting. She seems to be confused at times. Her symptoms are worse from her ER visit on Thursday. She has been taking her propranolol, sounds like maybe just once in the morning. She thinks she threw everything up this morning. She was supposed to be started on methimazole but just got that prescription, has not taken it yet. She is requesting a test here today. She notes no chest pain. She had significant weight loss which started a clinic visit. Interestingly she had a suppressed TSH in January of 2023 of 0.024 with a normal free T4 1.27. On 09/04/2023 her TSH was normal at 0.409. On November 11, TSH was suppressed to less than 0.015, free T4 greater than 6.99, she had a PTH intact of 8.1 which was low and a calcium elevated at 11.6. Her AST was elevated at 53, ALT at 66, they were both normal on Sep 04 2023 at 26 and 33 respectively. On November 20 when she came to the ER her free T4 was greater than 6.99, free T3 greater than 32.5. Her thyroid peroxidase antibody was normal at 0.8 and thyroglobulin antibody normal at less than 1.5 from November 20. Her anti TSH antibody was elevated at 17.3 on November 21. Her thyroid ultrasound is enlarged and hypervascular thyroid per report, done yesterday. FINDINGS: The thyroid gland demonstrates heterogeneous echogenicity and is enlarged. The right lobe measures 7.4 x 2.8 x 3.5 cm and the left lobe measures 5.8 x 2.3 x 2.8 cm in size. The isthmus measures 1.4 cm. There are no suspicious masses or nodules. The color Doppler images demonstrate diffusely increased vascularity. There is no evidence of cervical lymphadenopathy or parathyroid mass. IMPRESSION: Enlarged and hypervascular thyroid. Related Data Previous Rx's ?Medication ?Instructions ?Recorded escitalopram oxalate 10 mg tablet 10 mg PO DAILY #30 t abs 11/11/24 lorazepam 1 mg tablet 1 mg PO BID PRN anxiety #20 tabs 11/11/24 methimazole 10 mg tablet 20 mg (2 x 10 mg) PO DAILY # 60 tabs 11/20/24 ondansetron 4 mg disintegrating 4 mg PO Q8H PRN nausea and 11/20/24 tablet vomiting #7 tabs propranolol 20 mg tablet 20 mg PO BID #30 tabs Allergies Allergy/AdvReac Type Severity Reaction Status Date / Time sumatriptan (From Imitrex) Allergy Anaphylaxis Verified 11/11/24 12:27 Review of Systems Status of ROS: Reports: 6 or more systems reviewed and unremarkable except as noted in History and below [facility] Medical History Chronic daily headache ?R51.9 - Headache, unspecified (ICD-10) Major depression, recurrent, chronic ?F33.9 - Major depressive disorder, recurrent, unspecified (ICD-10) Irritable bowel syndrome ?K58.9 - Irritable bowel syndrome without diarrhea (ICD-10) Generalized anxiety disorder ?F41.1 - Generalized anxiety disorder (ICD-10) Dog bite of right hand ?S61.451A - Open bite of right hand, initial encounter (ICD-10) ?W54.0XXA - Bitten by dog, initial encounter (ICD-10) Panic attacks ?F41.0 - Panic disorder [episodic paroxysmal anxiety] (ICD-10) Surgical History No pertinent past surgical history ?Z78.9 - Other specified health status (ICD-10) Family History Maternal Grandfather Heart disease Paternal Grandfather Cancer Paternal Grandmother Breast cancer Maternal Grandmother Myelofibrosis 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 Alcohol 4 drinks on average per month. No illicit drug use. Smoking Status: Never smoker Do you use any of these nicotine containing products: None How often do you have a drink containing alcohol: never AUDIT-C Alcohol total score: 0 Non-prescribed substance use: denies use Exam Const: Vital Signs, click to edit/add: Vital Signs - 24 hr 11/23/24 11:52 11/23/24 13:02 11/23/24 13:05 Temperature 97.5 F L Pulse Rate 115 H 114 H Pulse Rate [Pulse Oximeter] 115 H Respiratory Rate 20 9 L 13 Blood Pressure 138/79 Blood Pressure [Ri ght Upper Arm] 135/81 Pulse Oximetry 97 96 97 Oxygen Delivery Me thod Room Air 11/23/24 13:06 11/23/24 13:19 11/23/24 13:21 Temperature Pulse Rate 113 H 115 H Pulse Rate [Pulse Oximeter] Respiratory Rate 21 15 Blood Pressure Blood Pressure [Ri ght Upper Arm] Pulse Oximetry 95 98 98 Oxygen Delivery Me thod 11/23/24 13:30 11/23/24 13:45 Temperature Pulse Rate 113 H 114 H Pulse Rate [Pulse Oximeter] Respiratory Rate 23 19 Blood Pressure Blood Pressure [Ri ght Upper Arm] Pulse Oximetry 98 97 Oxygen Delivery Me thod This 24-year-old female lying in the bed in exam room 5, is alert and interactive but looks like she does not feel well, looks pale. Pupils are equal round reactive, sclera clear, extraocular muscles intact, do not appreciate exo phthalmos at this time. Oropharynx somewhat dry but lips not cracked. Symmetrical facial function. CV is fast but regular, no murmur, normal S1-S2. Lungs are clear come good air entry, no wheeze or crackles. Abdomen is soft, nontender, nondistended, no organomegaly. Globally her strength is diminished, 4-5 but no focal weakness. I cannot get DTRs. No tremors. No tenderness of joints, no muscle tenderness noted. Documenting provider has reviewed patient's vital signs: yes Course Course ED Course: This patient is known to have hyperthyroidism, it is apparently Graves disease with her antibody testing. She is complaining of weakness, a GI symptoms inhib iting her ability to take medicines. She does seem to have potentially some mild confusion, her story does not completely track and her boyfriend helps assist in the story. Her propranolol supposed to be twice a day, she seems a little unclear as to when she is taking it, was not really remembering if she took it or not this morning but then subsequently did remember. Her GI symptoms certainly can be from the hyperthyroidism. I am not rechecking a free T4 today as there really is no point, I cannot differentiate a level beyond what was already checked. The total T3 is a send out for us. We will recheck her electrolytes, her CBC. I will initiate a L of fluids. Reevaluation(s) Time of Reevaluation #1: 15:25 Reevaluation #1: Did speak with patient, her boyfriend and her mom. We reviewed that she has thyrotoxicosis from Graves. Discussed my conversation with manufacturing business analyst from [facility]. We reviewed the recommendations for the methimazole, propranolol and cholestyramine. We reviewed that she will be staying here, there are no beds in the [facility] system but the manufacturing business analyst assures us that they will be willing to take phone calls. We are to contact them tomorrow for follow-up and when the labs are back. I will be talking to the hospitalist. Consultations Consultation #1: Did speak with Dr. Velazquez through [facility]. They do not have endocrinology consultations at any of their facilities. She cannot accept this patient. Time: 15:02 Consultation #2: Did speak with the hospitalist from [facility] as well as the manufacturing business analyst Dr. Raymond. They do not have any beds, patient would not be able to transfer today. They think we can safely keep her here. He would recommend methimazole 20 mg twice a day. He would recommend cholestyramine 3 times a day. Propranolol per our recommendations based on vitals. Tomorrow he would check a TSH, free T4 and total T3. We are to call them once we have these results. He states she is thyrotoxic from Graves disease, her hypercalcemia will improve as we treat the thyrotoxicosis. He states that she does not have multiorgan failure of thyroid storm. He believe she is safe to stay here with the guidance from them. Time: 15:04 Consultation #3: Did sign out to our hospitalist Dr. Guerrero. He will accept care. I went over my conversation with the manufacturing business analyst from [facility] which is delineated above. Time: 17:10 Vital Signs Vital signs: Initial Vital Signs Temperature 97.5 F L 11/23/24 11:52 Temperature Source Temporal Artery Scan 11/23/24 11:52 Pulse Rate 115 H 11/23/24 11:52 Respiratory Rate 20 11/23/24 11:52 Blood Pressure 135/81 11/23/24 11:52 Blood Pressure Mean 99 11/23/24 11:52 Blood Pressure Position Sitting 11/23/24 11:52 Pulse Oximetry 97 11/23/24 11:52 Oxygen Delivery Method Room Air 11/23/24 11:52 Vital Signs Temperature 97.5 F L 11/23/24 11:52 Pulse Rate 115 H 11/23/24 11:52 Respiratory Rate 20 11/23/24 11:52 Blood Pressure 135/81 11/23/24 11:52 Pulse Oximetry 97 11/23/24 11:52 Oxygen Delivery Method Room Air 11/23/24 11:52 Temperature 97.5 F L 11/23/24 11:52 Pulse Rate 114 H 11/23/24 13:45 Respiratory Rate 19 11/23/24 13:45 Blood Pressure 138/79 11/23/24 13:05 Pulse Oximetry 97 11/23/24 13:45 Oxygen Delivery Method Room Air 11/23/24 11:52 Medications Administered Medications: Discontinued Medications Generic Name Dose Route Start Last Admin Trade Name Freq PRN Reason Stop Dose Admin Sodium Chloride 1,000 mls @ 500 mls/hr 11/23/24 12:40 11/23/24 14:00 0.9 % Sodium Chloride 1000 Ml IV 11/23/24 14:39 Infused .Q2H JED Infusion Sodium Chloride 1,000 mls @ 500 mls/hr 11/23/24 14:32 11/23/24 14:41 0.9 % Sodium Chloride 1000 Ml IV 11/23/24 16:31 500 mls/hr .Q2H JED Administration Propranolol HCl 20 mg 11/23/24 14:33 11/23/24 14:53 Propranolol 20 Mg Tablet PO 11/23/24 14:34 20 mg ONCE ONE Administration Medical Decision Making Lab Data Lab results reviewed: Yes I reviewed the patient's lab results Labs: Lab Results 11/23/24 Range/Units 13:00 WBC 5.56 (4.50-11.00) K/uL RBC 4.16 (4.00-5.20) m/uL Hgb 10.9 L (12.0-16.0) gm/dL Hct 32.9 L (33.0-51.0) % MCV 79 L (80-100) fL MCH 26 (26-34) pg MCHC 33 (32-36) gm/dL RDW Coeff of Filippo 13.3 (11.5-15.5) % Plt Count 284 (140-440) K/uL Neut % (Auto) 33.6 L (42.0-72.0) % Lymph % (Auto) 50.2 H (20-44) % [place] % (Auto) 13.5 H (0.0-11.0) % Eos % (Auto) 2.3 (0.0-7.0) % Baso % (Auto) 0.4 (0.0-3.0) % Neut # (Auto) 1.90 (1.7-7.0) K/uL Lymph # (Auto) 2.80 (0.90-2.90) K/uL [place] # (Auto) 0.80 (0.00-0.90) K/UL Eos # (Auto) 0.13 (0.00-0.50) K/uL Baso # (Auto) 0.02 (0.00-0.30) K/uL Abs Immat Gran (auto) 0.00 (0.00-0.30) K/uL Imm/Tot Granulo (auto) 0.0 % Sodium 139 (135-149) mmol/L Potassium 4.1 (3.6-5.1) mmol/L Chloride 104 (96-114) mmol/L Carbon Dioxide 30 (20-32) mmol/L Anion Gap 5 L (7-15) mEq/L BUN 23 (5-24) mg/dL Creatinine 0.5 (0.5-1.5) mg/dL Estimated Creat Clear 142.28 Estimated GFR 133 ml/min Glucose 99 (60-115) mg/dL Lactate 1.0 (0.5-1.9) mmol/L Calcium 13.6 H* (8.4-10.6) mg/dL Total Bilirubin 1.1 (0.1-1.5) mg/dL AST 91 H (12-35) U/L ALT 110 H (4-35) U/L Alkaline Phosphatase 90 (40-150) U/L Total Creatine Kinase < 20 L (41-117) U/L Troponin I 0.02 (0.01-0.04) ng/mL Total Protein 7.1 (6.0-8.3) g/dL Albumin 4.0 (3.3-5.0) g/dL HCG, Qual Negative (Negative) ECG Data Attestation: I personally reviewed and interpreted this ECG as follows: (Sinus tachycardia with first-degree AV block, 114 beats per minute. Nonspecific ST changes without any acute ST segment changes.) Prior ECG tracings: not available for review Discharge Plan Discharge Prescriptions: No Action escitalopram oxalate 10 mg tablet 10 mg PO DAILY Qty: 30 0RF lorazepam 1 mg tablet 1 mg PO BID PRN (Reason: anxiety) Qty: 20 0RF propranolol 20 mg tablet 20 mg PO BID Qty: 30 2RF methimazole 10 mg tablet 20 mg PO DAILY Qty: 60 2RF ondansetron 4 mg tablet,disintegrating 4 mg PO Q8H PRN (Reason: nausea and vomiting) Qty: 7 0RF Follow Up/Referrals: Aaliyah Woodson, FABRIC INSPECTOR, LOG RAFT WORKER [Primary Care Provider, Family Practice]
[2024-11-23 13:06] LABS: Lactate* 1.0 mmol/L (0.5-1.9)
[2024-11-23 13:09] LABS: Hematocrit 32.9 % (33.0-51.0); Hemoglobin* 10.9 gm/dL (12.0-16.0); Immature Granulocytes Abs Auto 0.00 K/uL (0.00-0.30); Immature Granulocytes Pct Auto 0.0 %; Mean Corpuscular HGB Conc 33 gm/dL (32-36); Mean Corpuscular Hemoglobin 26 pg (26-34); Mean Corpuscular Volume 79 fL (80-100); RDW Coefficient of Variation % 13.3 % (11.5-15.5); Red Blood Count 4.16 m/uL (4.00-5.20); White Blood Count* 5.56 K/uL (4.50-11.00)
[2024-11-23 13:17] LABS: Lymphocytes Absolute Auto 2.80 K/uL (0.90-2.90)
[2024-11-23 13:18] LABS: Slide Review Reflex No
[2024-11-23 13:24] LABS: Albumin* 4.0 g/dL (3.3-5.0); Chloride* 104 mmol/L (96-114); Sodium* 139 mmol/L (135-149)
[2024-11-23 13:25] LABS: Potassium* 4.1 mmol/L (3.6-5.1)
[2024-11-23 13:27] LABS: Alanine Aminotransferase* 110 U/L (4-35); Alkaline Phosphatase* 90 U/L (40-150); Anion Gap 5 mEq/L (7-15); Aspartate Amino Transferase* 91 U/L (12-35); Bilirubin Total* 1.1 mg/dL (0.1-1.5); Blood Urea Nitrogen* 23 mg/dL (5-24); Carbon Dioxide* 30 mmol/L (20-32); Creatinine* 0.5 mg/dL (0.5-1.5); Est. Creatinine Clearance* 142.28; Estimated Glomerular Filt Rate 133 ml/min; Total Protein* 7.1 g/dL (6.0-8.3)
[2024-11-23 13:28] LABS: Glucose* 99 mg/dL (60-115)
[2024-11-23 13:37] LABS: Creatine Kinase* < 20 U/L (41-117)
[2024-11-23 13:38] LABS: Calcium* 13.6 mg/dL (8.4-10.6)
[2024-11-23 13:45] LABS: HCG Qualitative Serum* Negative (Negative)
[2024-11-23] MEDS: PROPRANOLOL 20 MG TABLET PO ×2 (14:53→21:26)
[2024-11-23] MEDS: CHOLESTYRAMINE POWDER 4 GM PO ×2 (16:00→21:27)
--- NOTE | 2024-11-23 17:54 | P.IMHP_ITS ---
Assessment and Plan Assessment and plan (1) Thyrotoxicosis due to Graves' disease: Problem comment: - are physicians in the emergency department have been able to discuss the patient's case with the certified fraud examiner at [facility], Dr. Carrizales. Dr. Raymond recommends admission to the hospital for stabilization, initiation of methimazole 20 mg twice daily, initiation of propranolol for symptom management at 20 mg 2-3 times daily, cholestyramine 4 g orally 3 times daily. Additionally, in the morning recheck TSH, free T4, total T3. - Dr. Raymond would like the hospitalist service to call him tomorrow morning, 11/24/2024 for an update. Patient will need referral to Endocrinology in the near future. Status: Acute (2) Low hemoglobin: Problem comment: - this may be multifactorial including from normal menses but also 20-25% of the time individuals with hyperthyroidism do have anemia in association with it - check iron studies - follow-up in outpatient setting Status: Acute (3) Elevated liver enzymes: Problem comment: - 20-25% of the time individuals with hyperthyroidism to have abnormal AST and ALT elevation, likely in association with evolving myopathy of hyperthyroidism Status: Acute (4) Serum calcium elevated: Problem comment: - Dr. Raymond indicates that this will resolve with treatment of hyperthyroidism. - IV fluids administered. Follow while in hospital. Status: Acute (5) Unintentional weight loss: Problem comment: - treat hyperthyroid state. In time patient will need to make a decision with certified fraud examiner about continued suppressive therapy verses radioactive iodine thyroid ablation versus surgery. Status: Acute (6) Diarrhea: Problem comment: - cholestyramine and monitor Status: Acute Plan 1. Reviewed impression with patient, her mother, her boyfriend 2. Answered their questions to their satisfaction 3. Continue with supportive efforts 4. Patient agreeable with above stated plans and recommendations Hospitalist- H&P: HPI History of Present Illness Date Seen: 11/23/24 Chief complaint: weakness Narrative: Jenifer Washington is a 24 year old woman presents for further assessment and treatment of evolving hyperthyroidism. Since July 2024 patient has had significant unintentional weight loss. She had been trying to lose some weight often on. Beginning in July of this year she started to lose weight unintentionally. Current weight around 59 kg. One month ago her weight was 64 kg. She has lost 25 kg over the past year. Has not had fevers, rigors, diaphoresis. Has noticed increased weakness and tremors of upper and lower extremities. During the same timeframe she has lost a lot of her hair and she starting to develop some bald spots. Denies visual changes. Acknowledges nausea. Weakness has progressed profoundly. No longer able to open a bottle of water. Can no longer walk up steps unassisted. Legs give out such as when taking a shower. More forgetful and confused, to the point that it is affecting her work and her studies. 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 Has been keeping a 4.0 grade average. With the evolution of all the symptoms she has not been able to keep up with her school work and her grade point average is dropped below 4.0. January 2023 TSH was 0.024 with free T4 normal at 1.27. In August 2023 her TSH was normal at 0.409. On 11/11/2024 TSH is suppressed at less than 0.015, free T4 greater than 6.99, free T3 greater than 32.5. PTH intact is 8.1. Calcium mildly elevated at 11.6. AST 53 an ALT 66, mild elevation, or as in August 2023 they were normal at 26 and 33 respectively. Thyroid peroxidase antibody normal at 0.8 and thyroglobulin antibody normal at less than 1.5. TSH antibody e levated at 17.3. Thyroid ultrasound demonstrates enlarged and hypervascular thyroid consistent with Graves thyroid disease. Patient was assessed in the emergency department recently and told that she needed to start the methimazole promptly and propranolol for symptom control. She was advised to follow-up including with certified fraud examiner. With her forgetfulness and confusion unfortunately she has not initiated any of these. Family finally convinced her to come in again today for reassessment. Review of Systems Status of ROS: Reports: 6 or more systems reviewed and unremarkable except as noted in History and below Narrative: Does not notice palpitations but notices heart rate elevated at greater than 100 at all times. Denies chest heaviness, pressure, tightness, pain. Acknowledges dyspnea with [id number] exertion which is new. Has not had vomiting or co nstipation. Does have irritable bowel syndrome and has had more loose stools. No blood loss of any sort. No trauma, injury, travel. Difficulty falling asleep. Chronically tired. I believe she lives with her boyfriend, Jass. Medical Decision Making Medical Decision Making Code Status: Full resuscitation Has patient completed a Health Care Directive: No During This Stay, Who Would You Like To Make Decisions For You In The Event You Are Unable To Make Them For Yourself?: Her mother PFSH PFS Medical History Chronic daily headache ?R51.9 - Headache, unspecified (ICD-10) Major depression, recurrent, chronic ?F33.9 - Major depressive disorder, recurrent, unspecified (ICD-10) Irritable bowel syndrome ?K58.9 - Irritable bowel syndrome without diarrhea (ICD-10) Generalized anxiety disorder ?F41.1 - Generalized anxiety disorder (ICD-10) Dog bite of right hand ?S61.451A - Open bite of right hand, initial encounter (ICD-10) ?W54.0XXA - Bitten by dog, initial encounter (ICD-10) Panic attacks ?F41.0 - Panic disorder [episodic paroxysmal anxiety] (ICD-10) Surgical History No pertinent past surgical history ?Z78.9 - Other specified health status (ICD-10) Family History Maternal Grandfather Heart disease Paternal Grandfather Cancer Paternal Grandmother Breast cancer Maternal Grandmother Myelofibrosis 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 Alcohol 4 drinks on average per month. No illicit drug use. Smoking Status: Never smoker Do you use any of these nicotine containing products: None How often do you have a drink containing alcohol: never AUDIT-C Alcohol total score: 0 Non-prescribed substance use: denies use Meds Home Medications and Allergies Home Medications ?Medication ?Instructions ?Recorded ?Confirmed ?Type escitalopram oxalate 10 mg tablet 10 mg PO DAILY #30 t abs 11/11/24 11/23/24 Rx lorazepam 1 mg tablet 1 mg PO BID PRN anxiety #20 tabs 11/11/24 11/23/24 Rx methimazole 10 mg tablet 20 mg (2 x 10 mg) PO DAILY # 60 tabs 11/20/24 11/23/24 Rx ondansetron 4 mg disintegrating 4 mg PO Q8H PRN nausea and 11/20/24 11/23/24 Rx tablet vomiting #7 tabs propranolol 20 mg tablet 20 mg PO BID #30 tabs 11/23/24 Rx Home Medication Comments: Has not started her methimazole or propranolol Allergies Allergy/AdvReac Type Severity Reaction Status Date / Time sumatriptan (From Imitrex) Allergy Anaphylaxis Verified 11/11/24 12:27 Exam Narrative: Exam Narrative: I examine her in the emergency department. She is laying on the exam table with head of bed elevated at 60? and legs outstretched in front of her. Appears comfortable and in no acute distress. Appropriately anxious. Nevertheless friendly, cooperative. Articulate. Balding scalp. Minimal exophthalmos. Enlarged thyroid. Neck is supple. No head and neck lymphadenopathy. Skin is warm and moist. Remarkable muscle weakness of bilateral upper extremities and proximal lower extremities. Fine resting tremor. Hyper reflexia upper and lower extremities. Lungs clear to auscultation. Regular heart rhythm, tachycardia. No murmur, gallop, rub. Abdomen with active bowel sounds, soft, nontender. No edema. Const: Vital Signs, click to edit/add: Vital Signs - 24 hr 11/23/24 11:52 11/23/24 13:02 11/23/24 13:05 Temperature 97.5 F L Pulse Rate 115 H 114 H Pulse Rate [Pulse Oximeter] 115 H Respiratory Rate 20 9 L 13 Blood Pressure 138/79 Blood Pressure [Ri ght Upper Arm] 135/81 Pulse Oximetry 97 96 97 Oxygen Delivery Me thod Room Air 11/23/24 13:06 11/23/24 13:19 11/23/24 13:21 Temperature Pulse Rate 113 H 115 H Pulse Rate [Pulse Oximeter] Respiratory Rate 21 15 Blood Pressure Blood Pressure [Ri ght Upper Arm] Pulse Oximetry 95 98 98 Oxygen Delivery Me thod 11/23/24 13:30 11/23/24 13:45 Temperature Pulse Rate 113 H 114 H Pulse Rate [Pulse Oximeter] Respiratory Rate 23 19 Blood Pressure Blood Pressure [Ri ght Upper Arm] Pulse Oximetry 98 97 Oxygen Delivery [facility] Hospitalist - H&P: Result Labs Labs: Short CBC 11/23/24 Range/Units 13:00 WBC 5.56 (4.50-11.00) K/uL Hgb 10.9 L (12.0-16.0) gm/dL Hct 32.9 L (33.0-51.0) % Plt Count 284 (140-440) K/uL BMP 11/23/24 13:00 Sodium 139 Potassium 4.1 Chloride 104 Carbon Dioxide 30 BUN 23 Creatinine 0.5 Glucose 99 Calcium 13.6 H* Cardiac Enzymes 11/23/24 Range/Units 13:00 Total Creatine Kinase < 20 L (41-117) U/L Troponin I 0.02 (0.01-0.04) ng/mL Liver Function 11/23/24 Range/Units 13:00 Total Bilirubin 1.1 (0.1-1.5) mg/dL AST 91 H (12-35) U/L ALT 110 H (4-35) U/L Alkaline Phosphatase 90 (40-150) U/L Albumin 4.0 (3.3-5.0) g/dL ECG ECG interpretation date: 11/23/24 Interpretation: Sinus tachycardia.
[2024-11-23] MEDS: SODIUM CHLORIDE 0.9 % (FLUSH) 10 ML SYRINGE 5 ML IVF (21:28)
--- NOTE | 2024-11-23 23:22 | PC.NURSE ---
End of shift note (258)? Patient has been very pleasant and cooperative since admission. Patient was admitted for weakness. She has a recent diagnosis of hyperthyroidism, and complains of loose stool, nausea, vomiting and confusion. Patient lab showed Calcium as 13.6. She moves stand by assist to one assist. She is shaky when she stands up and complains of dizziness and nausea. Patient states she has lost some weight and ?has not had a good appetite for days?. ?No pain has been reported. Lung sounds are clear bilaterally. Bowel sounds are normoactive in all quadrants. Patient is tachycardic (HR 116). SCDs have been placed bilaterally. Mom is staying the night in her room tonight.?
[2024-11-23] MEDS: LOPERAMIDE HCL 2 MG CAPSULE PO (23:57)
[2024-11-24] VITALS (12 sets, daily range): BP systolic 116–153; BP diastolic 49–90; PULSE 96–115; RESP 16–20; TEMP 36.7–36.9; O2SAT 96–100; BMI 23.4
--- NOTE | 2024-11-24 05:45 | PC.NURSE ---
The patient slept intermittently throughout the night between cares. Up to BR with SBA due to weakness and dizziness. Orthostatic BPs this am. No reports of pain. Call light within reach. Corrie MEDRANO BSN
[2024-11-24] MEDS: ACETAMINOPHEN 325 MG TABLET 650 MG PO (06:51)
[2024-11-24 07:01] LABS: Hematocrit 31.1 % (33.0-51.0); Hemoglobin* 10.3 gm/dL (12.0-16.0); Mean Corpuscular HGB Conc 33 gm/dL (32-36); Mean Corpuscular Hemoglobin 27 pg (26-34); Mean Corpuscular Volume 80 fL (80-100); Red Blood Count 3.88 m/uL (4.00-5.20); White Blood Count* 7.58 K/uL (4.50-11.00)
[2024-11-24] MEDS: ONDANSETRON ODT 4 MG TAB PO (07:01)
[2024-11-24 07:34] LABS: Iron* 114 ug/dL (37-170)
[2024-11-24 07:43] LABS: Percent Iron Saturation 45 % (20-50); Total Iron Binding Capacity 253 ug/dL (265-497)
[2024-11-24 08:06] LABS: Slide Review Reflex No
[2024-11-24 08:12] LABS: TSH With Reflex to FT4* < 0.015 uIU/mL (0.270-4.200)
[2024-11-24 08:14] LABS: Albumin* 3.8 g/dL (3.3-5.0); Chloride* 106 mmol/L (96-114); Sodium* 141 mmol/L (135-149)
[2024-11-24 08:15] LABS: Potassium* 3.7 mmol/L (3.6-5.1)
[2024-11-24 08:17] LABS: Alanine Aminotransferase* 93 U/L (4-35); Anion Gap 7 mEq/L (7-15); Aspartate Amino Transferase* 65 U/L (12-35); Blood Urea Nitrogen* 16 mg/dL (5-24); Carbon Dioxide* 28 mmol/L (20-32); Creatinine* 0.5 mg/dL (0.5-1.5); Est. Creatinine Clearance* 142.28; Estimated Glomerular Filt Rate 133 ml/min; Total Protein* 6.7 g/dL (6.0-8.3)
[2024-11-24 08:18] LABS: Alkaline Phosphatase* 83 U/L (40-150); Bilirubin Total* 0.9 mg/dL (0.1-1.5); Glucose* 94 mg/dL (60-115)
[2024-11-24 08:28] LABS: Ionized Calcium* 1.67 mmol/L (1.11-1.30)
[2024-11-24 08:29] LABS: Calcium* 13.2 mg/dL (8.4-10.6)
[2024-11-24 08:43] LABS: Free T4 Free Thyroxine* > 6.99 ng/dL (0.70-1.85)
[2024-11-24] MEDS: CHOLESTYRAMINE POWDER 4 GM PO ×3 (08:44→21:19)
[2024-11-24] MEDS: ESCITALOPRAM 10 MG TABLET PO (08:44)
[2024-11-24] MEDS: PROPRANOLOL 20 MG TABLET PO ×3 (08:44→21:17)
[2024-11-24] MEDS: SODIUM CHLORIDE 0.9 % (FLUSH) 10 ML SYRINGE 5 ML IVF ×2 (08:46→21:19)
[2024-11-24] MEDS: RIMEGEPANT 75 MG 75 EACH PO (10:33)
--- NOTE | 2024-11-24 10:54 | P.IMPN_ITS ---
Assessment and Plan Assessment and plan (1) Thyrotoxicosis due to Graves' disease: Problem comment: - are physicians in the emergency department have been able to discuss the patient's case with the insulation cutter and former at [place], Dr. Carrizales. Dr. Raymond recommends admission to the hospital for stabilization, initiation of methimazole 20 mg twice daily, initiation of propranolol for symptom management at 20 mg 2-3 times daily, cholestyramine 4 g orally 3 times daily. Additionally, in the morning recheck TSH, free T4, total T3. - Dr. Raymond would like the hospitalist service to call him tomorrow morning, 11/24/2024 for an update. Patient will need referral to Endocrinology in the near future. 11/24 awaiting completion of labs. TSH unchanged from 11/11, reporting <0.015, free T4 > 6.99 Continue propranolol, cholestyramine, methimazole Will continue to manage hypercalcemia at this time and plan to follow-up with Endocrinology tomorrow pending labs Has outpatient endocrinology appointment December 12, 2024 Status: Acute (2) Low hemoglobin: Problem comment: - this may be multifactorial including from normal menses but also 20-25% of the time individuals with hyperthyroidism do have anemia in association with it - check iron studies - pending other than TIBC 253 - follow-up in outpatient setting Status: Acute (3) Elevated liver enzymes: Problem comment: - 20-25% of the time individuals with hyperthyroidism to have abnormal AST and ALT elevation, likely in association with evolving myopathy of hyperthyroidism 11/24 down trending Status: Acute (4) Serum calcium elevated: Problem comment: - Dr. Raymond, Endo, indicates that this will resolve with treatment of hyperthyroidism 11/24 - 13.2, down from 13.6 following 2L NS - ionized Ca 1.67, phos 3.7 - continue normal saline - another bolus + maintenance - lab monitoring - consider lasix and biphosphonates only if no improvement following volume repletion Status: Acute (5) Unintentional weight loss: Problem comment: - treat hyperthyroid state. In time patient will need to make a decision with insulation cutter and former about continued suppressive therapy verses radioactive iodine thyroid ablation versus surgery. - ongoing workup in outpatient setting Status: Acute (6) Diarrhea: Problem comment: - cholestyramine and monitor Status: Acute (7) Migraine: Problem comment: -current, in setting of acute thyrotoxicosis and hypercalcemia, normal symptomatology -Rimegepant prn, tylenol prn, cool compress, antiemetics prn Status: Acute Plan Continue fluid resuscitation/repletion to improve calcium, monitoring labs and vitals. Manage migraine today. Await pending labs. With endocrinology tomorrow if resulted. Total Time Spent Total Time Spent: Today I spent 55 minutes seeing the patient, reviewing Expanse and EPIC notes/diagnostics, discussing the care plan with our care time that includes social work, PT/OT, pharmacy, RT, senior living and documenting my impressions and plan in the medical record. Subjective Date Seen: 11/24/24 Interval history: Patient is seen lying in bed this morning. Currently has a migraine without new or unusual symptoms. Intermittent nausea. Pressure behind the eyes. Remains mildly tachycardic with elevated blood pressures in setting of thyrotoxicosis and hypercalcemia. Received 2 L NS last night - will continue with more today. Exam Narrative: Exam Narrative: PHYSICAL EXAM General: Pleasant, appropriately conversant, NAD HEENT: Normocephalic, atraumatic, sclera white, EOMI, oral mucosa moist Cardiovascular: Mildly tachycardic. No pitting edema Pulmonary: CTA bilaterally without rhonchi, rales, expiratory wheezes. No dyspnea Abdominal: Soft, nondistended, NTTP Neurological: Alert, answering questions appropriately, cranial nerves intact, no focal findings Extremities: No gross joint deformity or swelling. AROMI. Neurovascularly intact Skin: Warm, dry. Const: Vital Signs, click to edit/add: Vital Signs - 24 hr 11/23/24 11:52 11/23/24 13:02 11/23/24 13:05 Temperature 97.5 F L Pulse Rate 115 H 114 H Pulse Rate [Pulse Oximeter] 115 H Pulse Rate [orthos tatic lying Right Pulse Oximeter] Pulse Rate [orthos tatic sitting Righ t Pulse Oximeter] Pulse Rate [orthos tatic standing Rig ht Pulse Oximeter] Respiratory Rate 20 9 L 13 Blood Pressure 138/79 Blood Pressure [Le ft Arm] Blood Pressure [Ri ght Arm] Blood Pressure [Ri ght Upper Arm] 135/81 Blood Pressure [or thostatic lying Le ft Arm] Blood Pressure [or thostatic sitting Left Arm] Blood Pressure [or thostatic standing Left Arm] Pulse Oximetry 97 96 97 Oxygen Delivery Me thod Room Air 11/23/24 13:06 11/23/24 13:19 11/23/24 13:21 Temperature Pulse Rate 113 H 115 H Pulse Rate [Pulse Oximeter] Pulse Rate [orthos tatic lying Right Pulse Oximeter] Pulse Rate [orthos tatic sitting Righ t Pulse Oximeter] Pulse Rate [orthos tatic standing Rig ht Pulse Oximeter] Respiratory Rate 21 15 Blood Pressure Blood Pressure [Le ft Arm] Blood Pressure [Ri ght Arm] Blood Pressure [Ri ght Upper Arm] Blood Pressure [or thostatic lying Le ft Arm] Blood Pressure [or thostatic sitting Left Arm] Blood Pressure [or thostatic standing Left Arm] Pulse Oximetry 95 98 98 Oxygen Delivery Me thod 11/23/24 13:30 11/23/24 13:45 11/23/24 14:00 Temperature Pulse Rate 113 H 114 H 116 H Pulse Rate [Pulse Oximeter] Pulse Rate [orthos tatic lying Right Pulse Oximeter] Pulse Rate [orthos tatic sitting Righ t Pulse Oximeter] Pulse Rate [orthos tatic standing Rig ht Pulse Oximeter] Respiratory Rate 23 19 12 Blood Pressure Blood Pressure [Le ft Arm] Blood Pressure [Ri ght Arm] Blood Pressure [Ri ght Upper Arm] Blood Pressure [or thostatic lying Le ft Arm] Blood Pressure [or thostatic sitting Left Arm] Blood Pressure [or thostatic standing Left Arm] Pulse Oximetry 98 97 98 Oxygen Delivery Me thod Room Air 11/23/24 14:01 11/23/24 14:15 11/23/24 14:30 Temperature Pulse Rate 114 H 116 H 118 H Pulse Rate [Pulse Oximeter] Pulse Rate [orthos tatic lying Right Pulse Oximeter] Pulse Rate [orthos tatic sitting Righ t Pulse Oximeter] Pulse Rate [orthos tatic standing Rig ht Pulse Oximeter] Respiratory Rate 14 19 14 Blood Pressure 127/66 Blood Pressure [Le ft Arm] Blood Pressure [Ri ght Arm] Blood Pressure [Ri ght Upper Arm] Blood Pressure [or thostatic lying Le ft Arm] Blood Pressure [or thostatic sitting Left Arm] Blood Pressure [or thostatic standing Left Arm] Pulse Oximetry 97 98 98 Oxygen Delivery Me thod Room Air Room Air Room Air 11/23/24 14:45 11/23/24 15:00 11/23/24 15:01 Temperature Pulse Rate 120 H 119 H 125 H Pulse Rate [Pulse Oximeter] Pulse Rate [orthos tatic lying Right Pulse Oximeter] Pulse Rate [orthos tatic sitting Righ t Pulse Oximeter] Pulse Rate [orthos tatic standing Rig ht Pulse Oximeter] Respiratory Rate 18 22 24 Blood Pressure 138/56 L Blood Pressure [Le ft Arm] Blood Pressure [Ri ght Arm] Blood Pressure [Ri ght Upper Arm] Blood Pressure [or thostatic lying Le ft Arm] Blood Pressure [or thostatic sitting Left Arm] Blood Pressure [or thostatic standing Left Arm] Pulse Oximetry 98 97 98 Oxygen Delivery Me thod Room Air Room Air 11/23/24 15:15 11/23/24 15:30 11/23/24 15:45 Temperature Pulse Rate 118 H 118 H 118 H Pulse Rate [Pulse Oximeter] Pulse Rate [orthos tatic lying Right Pulse Oximeter] Pulse Rate [orthos tatic sitting Righ t Pulse Oximeter] Pulse Rate [orthos tatic standing Rig ht Pulse Oximeter] Respiratory Rate 11 L 18 18 Blood Pressure Blood Pressure [Le ft Arm] Blood Pressure [Ri ght Arm] Blood Pressure [Ri ght Upper Arm] Blood Pressure [or thostatic lying Le ft Arm] Blood Pressure [or thostatic sitting Left Arm] Blood Pressure [or thostatic standing Left Arm] Pulse Oximetry 97 97 97 Oxygen Delivery Me thod Room Air 11/23/24 16:00 11/23/24 16:15 11/23/24 16:30 Temperature Pulse Rate 115 H 116 H 114 H Pulse Rate [Pulse Oximeter] Pulse Rate [orthos tatic lying Right Pulse Oximeter] Pulse Rate [orthos tatic sitting Righ t Pulse Oximeter] Pulse Rate [orthos tatic standing Rig ht Pulse Oximeter] Respiratory Rate 16 12 13 Blood Pressure Blood Pressure [Le ft Arm] Blood Pressure [Ri ght Arm] Blood Pressure [Ri ght Upper Arm] Blood Pressure [or thostatic lying Le ft Arm] Blood Pressure [or thostatic sitting Left Arm] Blood Pressure [or thostatic standing Left Arm] Pulse Oximetry 96 97 98 Oxygen Delivery Me thod 11/23/24 16:45 11/23/24 17:00 11/23/24 17:01 Temperature Pulse Rate 114 H 115 H 115 H Pulse Rate [Pulse Oximeter] Pulse Rate [orthos tatic lying Right Pulse Oximeter] Pulse Rate [orthos tatic sitting Righ t Pulse Oximeter] Pulse Rate [orthos tatic standing Rig ht Pulse Oximeter] Respiratory Rate 12 15 20 Blood Pressure 124/62 Blood Pressure [Le ft Arm] Blood Pressure [Ri ght Arm] Blood Pressure [Ri ght Upper Arm] Blood Pressure [or thostatic lying Le ft Arm] Blood Pressure [or thostatic sitting Left Arm] Blood Pressure [or thostatic standing Left Arm] Pulse Oximetry 98 97 98 Oxygen Delivery Me thod 11/23/24 17:15 11/23/24 17:30 11/23/24 17:45 Temperature Pulse Rate 117 H Pulse Rate [Pulse Oximeter] Pulse Rate [orthos tatic lying Right Pulse Oximeter] Pulse Rate [orthos tatic sitting Righ t Pulse Oximeter] Pulse Rate [orthos tatic standing Rig ht Pulse Oximeter] Respiratory Rate 23 24 7 L Blood Pressure Blood Pressure [Le ft Arm] Blood Pressure [Ri ght Arm] Blood Pressure [Ri ght Upper Arm] Blood Pressure [or thostatic lying Le ft Arm] Blood Pressure [or thostatic sitting Left Arm] Blood Pressure [or thostatic standing Left Arm] Pulse Oximetry 97 Oxygen Delivery Me thod 11/23/24 17:55 11/23/24 18:15 11/23/24 18:40 Temperature 98.3 F Pulse Rate 118 H Pulse Rate [Pulse Oximeter] 116 H Pulse Rate [orthos tatic lying Right Pulse Oximeter] 117 H Pulse Rate [orthos tatic sitting Righ t Pulse Oximeter] 114 H Pulse Rate [orthos tatic standing Rig ht Pulse Oximeter] 112 H Respiratory Rate 18 Blood Pressure Blood Pressure [Le ft Arm] 142/68 H Blood Pressure [Ri ght Arm] Blood Pressure [Ri ght Upper Arm] Blood Pressure [or thostatic lying Le ft Arm] 148/73 H Blood Pressure [or thostatic sitting Left Arm] 144/46 H Blood Pressure [or thostatic standing Left Arm] 132/77 Pulse Oximetry 97 Oxygen Delivery Me thod Room Air 11/23/24 18:40 11/23/24 19:00 11/23/24 23:00 Temperature 98.3 F 98.5 F Pulse Rate Pulse Rate [Pulse Oximeter] 116 H 112 H Pulse Rate [orthos tatic lying Right Pulse Oximeter] Pulse Rate [orthos tatic sitting Righ t Pulse Oximeter] Pulse Rate [orthos tatic standing Rig ht Pulse Oximeter] Respiratory Rate 14 14 16 Blood Pressure Blood Pressure [Le ft Arm] 135/85 Blood Pressure [Ri ght Arm] 142/64 H Blood Pressure [Ri ght Upper Arm] Blood Pressure [or thostatic lying Le ft Arm] Blood Pressure [or thostatic sitting Left Arm] Blood Pressure [or thostatic standing Left Arm] Pulse Oximetry 97 97 97 Oxygen Delivery Me thod Room Air Room Air Room Air 11/23/24 23:00 11/23/24 23:00 11/23/24 23:00 Temperature Pulse Rate 115 H Pulse Rate [Pulse Oximeter] 112 H Pulse Rate [orthos tatic lying Right Pulse Oximeter] Pulse Rate [orthos tatic sitting Righ t Pulse Oximeter] Pulse Rate [orthos tatic standing Rig ht Pulse Oximeter] Respiratory Rate Blood Pressure Blood Pressure [Le ft Arm] Blood Pressure [Ri ght Arm] Blood Pressure [Ri ght Upper Arm] Blood Pressure [or thostatic lying Le ft Arm] Blood Pressure [or thostatic sitting Left Arm] Blood Pressure [or thostatic standing Left Arm] Pulse Oximetry 97 Oxygen Delivery Me thod Room Air 11/24/24 03:00 11/24/24 06:25 11/24/24 07:00 Temperature 98.2 F Pulse Rate Pulse Rate [Pulse Oximeter] 115 H Pulse Rate [orthos tatic lying Right Pulse Oximeter] 111 H Pulse Rate [orthos tatic sitting Righ t Pulse Oximeter] 112 H Pulse Rate [orthos tatic standing Rig ht Pulse Oximeter] 115 H Respiratory Rate 18 Blood Pressure Blood Pressure [Le ft Arm] 138/62 Blood Pressure [Ri ght Arm] Blood Pressure [Ri ght Upper Arm] Blood Pressure [or thostatic lying Le ft Arm] 139/66 Blood Pressure [or thostatic sitting Left Arm] 127/90 H Blood Pressure [or thostatic standing Left Arm] 149/67 H Pulse Oximetry 96 98 Oxygen Delivery Me thod Room Air Room Air 11/24/24 07:00 11/24/24 07:46 11/24/24 08:44 Temperature 98.4 F Pulse Rate 111 H Pulse Rate [Pulse Oximeter] 112 H Pulse Rate [orthos tatic lying Right Pulse Oximeter] Pulse Rate [orthos tatic sitting Righ t Pulse Oximeter] Pulse Rate [orthos tatic standing Rig ht Pulse Oximeter] Respiratory Rate 16 Blood Pressure Blood Pressure [Le ft Arm] Blood Pressure [Ri ght Arm] 116/49 L 153/63 H Blood Pressure [Ri ght Upper Arm] Blood Pressure [or thostatic lying Le ft Arm] Blood Pressure [or thostatic sitting Left Arm] Blood Pressure [or thostatic standing Left Arm] Pulse Oximetry 98 Oxygen Delivery Me thod Room Air Labs Labs: Laboratory Results - last 24 hr 11/23/24 11/24/24 11/24/24 13:00 06:53 06:53 WBC 5.56 7.58 RBC 4.16 3.88 L Hgb 10.9 L 10.3 L Hct 32.9 L 31.1 L MCV 79 L 80 MCH 26 27 MCHC 33 33 RDW Coeff of Filippo 13.3 Plt Count 284 269 Neut % (Auto) 33.6 L Lymph % (Auto) 50.2 H [place] % (Auto) 13.5 H Eos % (Auto) 2.3 Baso % (Auto) 0.4 Neut # (Auto) 1.90 Lymph # (Auto) 2.80 [place] # (Auto) 0.80 Eos # (Auto) 0.13 Baso # (Auto) 0.02 Abs Immat Gran (auto) 0.00 Imm/Tot Granulo (auto) 0.0 Sodium 139 141 Potassium 4.1 3.7 Chloride 104 106 Carbon Dioxide 30 28 Anion Gap 5 L 7 BUN 23 16 Creatinine 0.5 0.5 Estimated Creat Clear 142.28 142.28 Estimated GFR 133 133 Glucose 99 94 Lactate 1.0 Calcium 13.6 H* 13.2 H* Ionized Calcium Moira Phosphorus 3.7 Iron 114 TIBC 253 L % Saturation 45 Total Bilirubin 1.1 0.9 AST 91 H 65 H ALT 110 H 93 H Alkaline Phosphatase 90 83 Total Creatine Kinase < 20 L Troponin I 0.02 Total Protein 7.1 6.7 Albumin 4.0 3.8 TSH < 0.015 L Free T4 > 6.99 H HCG, Qual Negative Lab Acknowledgement Test Added Test Added 11/24/24 08:20 WBC RBC Hgb Hct MCV MCH MCHC RDW Coeff of Filippo Plt Count Neut % (Auto) Lymph % (Auto) [place] % (Auto) Eos % (Auto) Baso % (Auto) Neut # (Auto) Lymph # (Auto) [place] # (Auto) Eos # (Auto) Baso # (Auto) Abs Immat Gran (auto) Imm/Tot Granulo (auto) Sodium Potassium Chloride Carbon Dioxide Anion Gap BUN Creatinine Estimated Creat Clear Estimated GFR Glucose Lactate Calcium Ionized Calcium Moira 1.67 H Phosphorus Iron TIBC % Saturation Total Bilirubin AST ALT Alkaline Phosphatase Total Creatine Kinase Troponin I Total Protein Albumin TSH Free T4 HCG, Qual Lab Acknowledgement
[2024-11-24 16:37] LABS: Calcium* 12.2 mg/dL (8.4-10.6)
--- NOTE | 2024-11-24 18:52 | PC.NURSE ---
Pt is doing well today. VSS. HR in improving, currently 96. Pt headache and eye pain has improved. Pt reports feeling steady on her feet and denies dizziness with activity. Pt denies nausea. Pt showered today and is ambulating in the halls independently. Family is at bedside. She is resting well at this time.
[2024-11-25] VITALS (9 sets, daily range): BP systolic 136–165; BP diastolic 59–95; PULSE 92–122; RESP 16; TEMP 36.6–36.9; O2SAT 94–98
[2024-11-25 06:15] LABS: Hematocrit 28.5 % (33.0-51.0); Hemoglobin* 9.4 gm/dL (12.0-16.0); Ionized Calcium* 1.61 mmol/L (1.11-1.30); Mean Corpuscular HGB Conc 33 gm/dL (32-36); Mean Corpuscular Hemoglobin 26 pg (26-34); Mean Corpuscular Volume 80 fL (80-100); Red Blood Count 3.56 m/uL (4.00-5.20); White Blood Count* 8.21 K/uL (4.50-11.00)
[2024-11-25 06:17] LABS: Slide Review Reflex No
--- NOTE | 2024-11-25 06:31 | PC.NURSE ---
End of shift: Pt pleasant, alert and oriented.? Pt hypertensive and tachycardic (110s with exertion, 90-105 without), otherwise VSS. Denies nausea or pain throughout shift. Partner stayed at bedside with pt. Pt in bed, appears to be resting, call light within reach.
[2024-11-25 06:53] LABS: Albumin* 3.4 g/dL (3.3-5.0); Chloride* 109 mmol/L (96-114)
[2024-11-25 06:54] LABS: Potassium* 4.1 mmol/L (3.6-5.1); Sodium* 139 mmol/L (135-149)
[2024-11-25 06:56] LABS: Anion Gap 5 mEq/L (7-15); Bilirubin Direct* 0.5 mg/dL (0.0-0.5); Bilirubin Total* 1.0 mg/dL (0.1-1.5); Blood Urea Nitrogen* 13 mg/dL (5-24); Carbon Dioxide* 25 mmol/L (20-32); Creatinine* 0.4 mg/dL (0.5-1.5); Est. Creatinine Clearance* 177.85; Estimated Glomerular Filt Rate 141 ml/min; Total Protein* 6.1 g/dL (6.0-8.3)
[2024-11-25 06:57] LABS: Alanine Aminotransferase* 77 U/L (4-35); Alkaline Phosphatase* 80 U/L (40-150); Aspartate Amino Transferase* 54 U/L (12-35); Glucose* 90 mg/dL (60-115)
[2024-11-25 07:06] LABS: Calcium* 12.3 mg/dL (8.4-10.6)
[2024-11-25 08:49] LABS: Free T4 Free Thyroxine* > 6.99 ng/dL (0.70-1.85)
[2024-11-25] MEDS: PROPRANOLOL 20 MG TABLET 30 MG PO ×3 (09:10→21:03)
[2024-11-25] MEDS: ESCITALOPRAM 10 MG TABLET PO (09:10)
[2024-11-25] MEDS: CHOLESTYRAMINE POWDER 4 GM PO ×3 (09:13→23:57)
[2024-11-25] MEDS: CALCITONIN,SALMON,SYNTHETIC 200 UNIT/ML inj SUBCUT (09:23)
[2024-11-25] MEDS: LACTATED RINGERS 1000 ML 1,000 ML IV (10:30)
[2024-11-25] MEDS: ONDANSETRON ODT 4 MG TAB PO (10:35)
[2024-11-25] MEDS: SODIUM CHLORIDE 0.9 % (FLUSH) 10 ML SYRINGE 5 ML IVF ×4 (10:35→22:54)
[2024-11-25 14:23] LABS: Ionized Calcium* 1.25 mmol/L (1.11-1.30)
[2024-11-25 14:45] LABS: Calcium* 9.8 mg/dL (8.4-10.6)
[2024-11-25] MEDS: ONDANSETRON 2 MG/ML inj 4 MG IVP ×2 (15:03→22:53)
--- NOTE | 2024-11-25 15:53 | PM.IMPN1 ---
Assessment and Plan Assessment and plan (1) Thyrotoxicosis due to Graves' disease: Problem comment: - are physicians in the emergency department have been able to discuss the patient's case with the alcohol still operator at [place], Dr. Carrizales. Dr. Raymond recommends admission to the hospital for stabilization, initiation of methimazole 20 mg twice daily, initiation of propranolol for symptom management at 20 mg 2-3 times daily, cholestyramine 4 g orally 3 times daily. Additionally, in the morning recheck TSH, free T4, total T3. - Dr. Raymond would like the hospitalist service to call him tomorrow morning, 11/24/2024 for an update. Patient will need referral to Endocrinology in the near future. 11/24 awaiting completion of labs. TSH unchanged from 11/11, reporting <0.015, free T4 > 6.99 Continue propranolol, cholestyramine, methimazole Will continue to manage hypercalcemia at this time and plan to follow-up with Endocrinology tomorrow pending labs Has outpatient endocrinology appointment December 12, 202411/25: Discussed the case with an alcohol still operator at [facility] and she agreed to the changes I did on her methimazole currently she is on methimazole 20 mg t.i.d. I increased propranolol from 20-30 t.i.d. I also bolus the patient with 1 L of Ringer lactate and I gave her 1 dose of calcitonin 200 subQ. -If patient's clinical status deteriorates with a B-W score going up, that will be concerning for an impending thyroid storm, patient will need to be transferred to a higher level of care and may need an ICU admission. Status: Acute (2) Low hemoglobin: Problem comment: - this may be multifactorial including from normal menses but also 20-25% of the time individuals with hyperthyroidism do have anemia in association with it - check iron studies - pending other than TIBC 253 - follow-up in outpatient setting Status: Acute (3) Elevated liver enzymes: Problem comment: - 20-25% of the time individuals with hyperthyroidism to have abnormal AST and ALT elevation, likely in association with evolving myopathy of hyperthyroidism 11/24 - 11/25 down trending Status: Acute (4) Serum calcium elevated: Problem comment: - Dr. Raymond, Endo, indicates that this will resolve with treatment of hyperthyroidism 11/24 - 13.2, down from 13.6 following 2L NS - ionized Ca 1.67, phos 3.7 - continue normal saline - another bolus + maintenance - lab monitoring - consider lasix and biphosphonates only if no improvement following volume repletion 11/25: Ionized calcium is back to normal after 1 showed of calcitonin 200 subQ and 1 L bolus IV fluid given today (patient received 4 L boluses over the past 36 hours in addition to IV maintenance that was started yesterday at 170 mL/hour) - will lower the IV fluid maintenance rate to 125 mL/hour Status: Acute (5) Unintentional weight loss: Problem comment: - treat hyperthyroid state. In time patient will need to make a decision with alcohol still operator about continued suppressive therapy verses radioactive iodine thyroid ablation versus surgery. - ongoing workup in outpatient setting Status: Acute (6) Diarrhea: Problem comment: - cholestyramine and monitor Status: Acute (7) Migraine: Problem comment: -current, in setting of acute thyrotoxicosis and hypercalcemia, normal symptomatology -Rimegepant prn, tylenol prn, cool compress, antiemetics prn Status: Acute Total Time Spent Total Time Spent: Today I spent 50 minutes seeing the patient, reviewing Expanse and EPIC notes/diagnostics, discussing the care plan with our care time that includes social work, PT/OT, pharmacy, RT, detention and documenting my impressions and plan in the medical record. Subjective Date Seen: 11/25/24 Interval history: Patient seen and examined at bedside this morning. She states that she is not nauseous and does not have any abdominal pain right now. Still mildly tachycardic with elevated blood pressures. Later on when she got her cholestyramine she vomited. Discussed the case with an alcohol still operator at [facility] and she agreed to the changes I did on her methimazole currently she is on methimazole 20 mg t.i.d. I increased propranolol from 20-30 t.i.d. I also bolus the patient with 1 L of Ringer lactate and I gave her 1 dose of calcitonin 200 subQ. If patient's clinical status deteriorates with a B-W score going up, that will be concerning for an impending thyroid storm, patient will need to be transferred to a higher level of care and may need an ICU admission. Exam Narrative: Exam Narrative: Physical exam GENERAL: Comfortable, no acute distress. HEAD AND NECK: Atraumatic, normocephalic CARDIOVASCULAR: Tachycardic. Normal S1, S2. No murmurs. RESPIRATORY: Clear to auscultation B/L. Good air entry B/L. GASTROINTESTINAL: Not distended, not tender to palpation. NEUROLOGY: Alert, awake, oriented X 3. Normal speech. PSYCH: Normal mood, normal affect. Const: Vital Signs, click to edit/add: Vital Signs - 24 hr 11/24/24 20:15 11/24/24 22:35 11/24/24 23:00 Temperature 98.3 F 98.3 F Pulse Rate Pulse Rate [Pulse Oximeter] 96 100 100 Respiratory Rate 20 16 16 Blood Pressure [Ri ght Arm] 134/75 148/80 H Pulse Oximetry 97 100 Oxygen Delivery Me thod Room Air Room Air 11/24/24 23:00 11/24/24 23:00 11/25/24 03:30 Temperature 97.9 F Pulse Rate 99 Pulse Rate [Pulse Oximeter] 106 H Respiratory Rate 16 Blood Pressure [Ri ght Arm] 148/76 H Pulse Oximetry 100 96 Oxygen Delivery Md thod Room Air Room Air 11/25/24 07:09 11/25/24 08:00 11/25/24 08:00 Temperature 98.2 F Pulse Rate 122 H Pulse Rate [Pulse Oximeter] 99 Respiratory Rate 16 Blood Pressure [Ri ght Arm] 165/95 H Pulse Oximetry 96 [facility] 11/25/24 11:00 11/25/24 14:56 11/25/24 14:58 Temperature 98.5 F Pulse Rate 100 Pulse Rate [Pulse Oximeter] 100 Respiratory Rate 16 16 Blood Pressure [Ri ght Arm] 157/59 H Pulse Oximetry 95 94 Oxygen Delivery Md thod Room Air Room Air 11/25/24 15:48 Temperature 98.5 F Pulse Rate Pulse Rate [Pulse Oximeter] 96 Respiratory Rate 16 Blood Pressure [Ri ght Arm] 147/67 H Pulse Oximetry 94 Oxygen Delivery Md thod Room Air Labs Labs: Laboratory Results - last 24 hr 11/24/24 11/25/24 11/25/24 16:01 05:26 07:39 WBC 8.21 RBC 3.56 L Hgb 9.4 L Hct 28.5 L MCV 80 MCH 26 MCHC 33 Plt Count 236 Sodium 139 Potassium 4.1 Chloride 109 Carbon Dioxide 25 Anion Gap 5 L BUN 13 Creatinine 0.4 L Estimated Creat Clear 177.85 Estimated GFR 141 Glucose 90 Calcium 12.2 H* 12.3 H* Ionized Calcium Moira 1.61 H Total Bilirubin 1.0 Direct Bilirubin 0.5 AST 54 H ALT 77 H Alkaline Phosphatase 80 Total Protein 6.1 Albumin 3.4 TSH < 0.015 L Free T4 > 6.99 H Lab Acknowledgement Test Added 11/25/24 14:16 WBC RBC Hgb Hct MCV MCH MCHC Plt Count Sodium Potassium Chloride Carbon Dioxide Anion Gap BUN Creatinine Estimated Creat Clear Estimated GFR Glucose Calcium 9.8 Ionized Calcium Moira 1.25 Total Bilirubin Direct Bilirubin AST ALT Alkaline Phosphatase Total Protein Albumin TSH Free T4 Lab Acknowledgement
--- NOTE | 2024-11-25 18:17 | PC.NURSE ---
Shift Summary: patient pleasant and cooperative. up independently, family present to assist with IV pole when ambulating. Poor appetite, encouraged to have ensure when not able to have meal, had ensure for lunch today. Headache improved throughout shift. Patient needed reminding that we are monitoring strict I&O. Per patient she removed hat in toilet when she needs to have BM, informed that the hat can stay in toilet while having BM. Tele shows NSR, intermittent tachycardia while ambulating however this has improved throughout shift. New IV placed this morning by Roc MEDRANO. Family in room and is supportive.
[2024-11-26 03:00] VITALS: BP 133/56; PULSE 92; RESP 16; TEMP 36.9; O2SAT 97
--- NOTE | 2024-11-26 05:32 | PC.NURSE ---
[id number] Pt slept well during night, answered questions regarding Grave's disease, some treatment options disease process, symptoms of hper/hypoactive thyroid and importance of talking to an production packager. C/O feeling weak, HR WNL during shift, c/o some nausea, no vomiting, scheduled zofran effective. IND in room and walking halls. voiding without difficulty, reminded pt on importance of strict I/O's, pt compliant this shift to best of RN's knowledge.
[2024-11-26 06:22] LABS: Ionized Calcium* 1.33 mmol/L (1.11-1.30)
[2024-11-26 06:24] LABS: Hematocrit 26.7 % (33.0-51.0); Hemoglobin* 8.9 gm/dL (12.0-16.0); Mean Corpuscular HGB Conc 33 gm/dL (32-36); Mean Corpuscular Hemoglobin 26 pg (26-34); Mean Corpuscular Volume 79 fL (80-100); Red Blood Count 3.37 m/uL (4.00-5.20); White Blood Count* 8.51 K/uL (4.50-11.00)
[2024-11-26 06:26] LABS: Slide Review Reflex No
[2024-11-26 06:43] LABS: Albumin* 3.2 g/dL (3.3-5.0); Chloride* 107 mmol/L (96-114); Potassium* 3.6 mmol/L (3.6-5.1); Sodium* 138 mmol/L (135-149)
[2024-11-26] MEDS: ONDANSETRON 2 MG/ML inj 4 MG IVP (06:44)
[2024-11-26] MEDS: SODIUM CHLORIDE 0.9 % (FLUSH) 10 ML SYRINGE 5 ML IVF (06:45)
[2024-11-26 06:46] LABS: Alanine Aminotransferase* 67 U/L (4-35); Alkaline Phosphatase* 76 U/L (40-150); Anion Gap 7 mEq/L (7-15); Aspartate Amino Transferase* 49 U/L (12-35); Bilirubin Total* 1.2 mg/dL (0.1-1.5); Blood Urea Nitrogen* 8 mg/dL (5-24); Carbon Dioxide* 24 mmol/L (20-32); Creatinine* 0.3 mg/dL (0.5-1.5); Est. Creatinine Clearance* 237.13; Estimated Glomerular Filt Rate 151 ml/min; Total Protein* 5.9 g/dL (6.0-8.3)
[2024-11-26 06:47] LABS: Calcium* 10.0 mg/dL (8.4-10.6); Glucose* 84 mg/dL (60-115)
[2024-11-26 07:00] VITALS: BP 149/69; PULSE 94; RESP 18; O2SAT 96
[2024-11-26 07:02] LABS: Free T4 Free Thyroxine* 6.41 ng/dL (0.70-1.85)
--- NOTE | 2024-11-26 07:34 | PM.IMPN1 ---
Assessment and Plan Assessment and plan (1) Thyrotoxicosis due to Graves' disease: Problem comment: - are physicians in the emergency department have been able to discuss the patient's case with the library customer service clerk at [place], Dr. Carrizales. Dr. Raymond recommends admission to the hospital for stabilization, initiation of methimazole 20 mg twice daily, initiation of propranolol for symptom management at 20 mg 2-3 times daily, cholestyramine 4 g orally 3 times daily. Additionally, in the morning recheck TSH, free T4, total T3. Uptitrated propranolol and methimazole to t.i.d. dosing to manage hyperthyroidism symptoms Status: Acute (2) Tachycardia: Problem comment: Improving with treatment of hyperthyroidism and beta-lamberto Status: Acute (3) Elevated liver enzymes: Problem comment: - 20-25% of the time individuals with hyperthyroidism to have abnormal AST and ALT elevation, likely in association with evolving myopathy of hyperthyroidism Status: Acute (4) Serum calcium elevated: Problem comment: - Dr. Raymond, Endo, indicates that this will resolve with treatment of hyperthyroidism. PTH suppressed at 8.1 Improved with hydration and 1 dose of calcitonin Status: Acute (5) Generalized anxiety disorder: Problem comment: Exacerbated by hyperthyroidism Status: Acute (6) Migraine: Problem comment: -current, in setting of acute thyrotoxicosis and hypercalcemia, normal symptomatology -Rimegepant prn, tylenol prn, cool compress, antiemetics prn Status: Acute (7) Chronic daily headache: Status: Acute (8) Unintentional weight loss: Problem comment: - treat hyperthyroid state. In time patient will need to make a decision with library customer service clerk about continued suppressive therapy verses radioactive iodine thyroid ablation versus surgery. - ongoing workup in outpatient setting Status: Acute (9) Diarrhea: Problem comment: - cholestyramine and monitor Status: Acute (10) Microcytic anemia: Problem comment: November 24 had TSAT of 45% Status: Acute Exam Const: Vital Signs, click to edit/add: Vital Signs - 24 hr 11/25/24 08:00 11/25/24 08:00 11/25/24 11:00 Temperature 98.2 F 98.5 F Pulse Rate Pulse Rate [Pulse Oximeter] 99 100 Respiratory Rate 16 16 Blood Pressure [Le ft Arm] Blood Pressure [Ri ght Arm] 165/95 H 157/59 H Pulse Oximetry 96 96 95 Oxygen Delivery Me thod Room Air Room Air Room Air 11/25/24 14:56 11/25/24 14:58 11/25/24 15:48 Temperature 98.5 F Pulse Rate 100 Pulse Rate [Pulse Oximeter] 96 Respiratory Rate 16 16 Blood Pressure [Le ft Arm] Blood Pressure [Ri ght Arm] 147/67 H Pulse Oximetry 94 94 Oxygen Delivery Me thod Room Air Room Air 11/25/24 19:00 11/25/24 23:00 11/25/24 23:00 Temperature 98.5 F Pulse Rate Pulse Rate [Pulse Oximeter] 92 96 Respiratory Rate 16 16 16 Blood Pressure [Le ft Arm] Blood Pressure [Ri ght Arm] 137/65 136/72 Pulse Oximetry 98 98 96 Oxygen Delivery Me thod Room Air Room Air Room Air 11/25/24 23:00 11/26/24 03:00 Temperature 98.5 F Pulse Rate 94 Pulse Rate [Pulse Oximeter] 92 Respiratory Rate 16 Blood Pressure [Le ft Arm] 133/56 L Blood Pressure [Ri ght Arm] Pulse Oximetry 97 Oxygen Delivery Me thod Room Air Labs Labs: Laboratory Results - last 24 hr 11/24/24 11/25/24 11/25/24 06:53 05:26 07:39 WBC RBC Hgb Hct MCV MCH MCHC Plt Count Sodium Potassium Chloride Carbon Dioxide Anion Gap BUN Creatinine Estimated Creat Clear Estimated GFR Glucose Calcium Ionized Calcium Moira Total Bilirubin AST ALT Alkaline Phosphatase Total Protein Albumin TSH < 0.015 L Free T4 > 6.99 H T3 >651 H Lab Acknowledgement Test Added 11/25/24 11/26/24 14:16 05:46 WBC 8.51 RBC 3.37 L Hgb 8.9 L Hct 26.7 L MCV 79 L MCH 26 MCHC 33 Plt Count 224 Sodium 138 Potassium 3.6 Chloride 107 Carbon Dioxide 24 Anion Gap 7 BUN 8 Creatinine 0.3 L Estimated Creat Clear 237.13 Estimated GFR 151 Glucose 84 Calcium 9.8 10.0 Ionized Calcium Moira 1.25 1.33 H Total Bilirubin 1.2 AST 49 H ALT 67 H Alkaline Phosphatase 76 Total Protein 5.9 L Albumin 3.2 L TSH Free T4 6.41 H T3 Lab Acknowledgement
[2024-11-26] MEDS: ESCITALOPRAM 10 MG TABLET PO (08:08)
[2024-11-26] MEDS: CHOLESTYRAMINE POWDER 4 GM PO (08:08)
[2024-11-26] MEDS: PROPRANOLOL 20 MG TABLET 30 MG PO (08:08)
[2024-11-26 08:30] VITALS: PULSE 96
[2024-11-26] MEDS: LOPERAMIDE HCL 2 MG CAPSULE PO (10:02)
--- NOTE | 2024-11-26 14:55 | P.DS_ITS ---
DS: Providers Provider Date Seen: 11/26/24 Date of admission: 11/24/24 10:12 Primary care physician: Aaliyah Woodson, CASING WRINGER OPERATOR, PLAYER SERVICES REPRESENTATIVE Admitting Clinician: Kolby Guerrero MD Attending Physician on discharge: Shawn Quintero MD Date of Discharge: 11/26/24 DS: Diagnosis Discharge Diagnosis (1) Thyrotoxicosis due to Graves' disease: Status: Acute Problem details: - are physicians in the emergency department have been able to discuss the patient's case with the anime artist at [place], Dr. Carrizales. Dr. Raymond recommends admission to the hospital for stabilization, initiation of methimazole 20 mg twice daily, initiation of propranolol for symptom management at 20 mg 2-3 times daily, cholestyramine 4 g orally 3 times daily. Additionally, in the morning recheck TSH, free T4, total T3. Uptitrated propranolol and methimazole to t.i.d. dosing to manage hyperthyroidism symptoms (2) Tachycardia: Status: Acute Problem details: Improving with treatment of hyperthyroidism and beta-lamberto (3) Elevated liver enzymes: Status: Acute Problem details: - 20-25% of the time individuals with hyperthyroidism to have abnormal AST and ALT elevation, likely in association with evolving myopathy of hyperthyroidism (4) Serum calcium elevated: Status: Acute Problem details: - Dr. Raymond, Endo, indicates that this will resolve with treatment of hyperthyroidism. PTH suppressed at 8.1 Improved with hydration and 1 dose of calcitonin. Calcium 10 on discharge (5) Generalized anxiety disorder: Status: Acute Problem details: Exacerbated by hyperthyroidism (6) Migraine: Status: Acute Problem details: -current, in setting of acute thyrotoxicosis and hypercalcemia, normal symptomatology -Rimegepant prn, tylenol prn, cool compress, antiemetics prn (7) Chronic daily headache: Status: Acute (8) Unintentional weight loss: Status: Acute Problem details: - treat hyperthyroid state. In time patient will need to make a decision with anime artist about continued suppressive therapy verses radioactive iodine thyroid ablation versus surgery. - ongoing workup in outpatient setting (9) Diarrhea: Status: Acute Problem details: - cholestyramine and monitor (10) Microcytic anemia: Status: Acute Problem details: November 24 had TSAT of 45% DS: Summary Hospital Course Hospital Course: Since July 2024 patient has had significant unintentional weight loss. She had been trying to lose some weight often on. Beginning in July of this year she started to lose weight unintentionally. Current weight around 59 kg. One month ago her weight was 64 kg. She has lost 25 kg over the past year. Has not had fevers, rigors, diaphoresis. Has noticed increased weakness and tremors of upper and lower extremities. During the same timeframe she has lost a lot of her hair and she starting to develop some bald spots. Denies visual changes. Acknowledges nausea. Weakness has progressed profoundly. No longer able to open a bottle of water. Can no longer walk up steps unassisted. Legs give out such as when taking a shower. More forgetful and confused, to the point that it is affecting her work and her studies. 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 Has been keeping a 4.0 grade average. With the evolution of all the symptoms she has not been able to keep up with her school work and her grade point average is dropped below 4.0. January 2023 TSH was 0.024 with free T4 normal at 1.27. In August 2023 her TSH was normal at 0.409. On 11/11/2024 TSH is suppressed at less than 0.015, free T4 greater than 6.99, free T3 greater than 32.5. PTH intact is 8.1. Calcium mildly elevated at 11.6. AST 53 an ALT 66, mild elevation, or as in August 2023 they were normal at 26 and 33 respectively. Thyroid peroxidase antibody normal at 0.8 and thyroglobulin antibody normal at less than 1.5. TSH antibody elevated at 17.3. Thyroid ultrasound demonstrates enlarged and hypervascular thyroid consistent with Graves thyroid disease. Patient was assessed in the emergency department recently and told that she needed to start the methimazole promptly and propranolol for symptom control. She was advised to follow-up including with anime artist. With her forgetfulness and confusion unfortunately she has not initiated any of these. Family finally convinced her to come in again today for reassessment. Patient was treated for thyrotoxicosis with methimazole dose increased to 30 mg b.i.d., propranolol dose increased to 40 mg b.i.d. and cholestyramine 4 g b.i.d.. During the hospital stay she had resolution of her tachycardia and improvement in her appetite and oral intake. Minimal diarrhea. Hypercalcemia was treated with IV fluids which normalized her elevated calcium. LFTs improved without specific intervention. Status at Discharge Overall status at discharge: patient is progressing back to baseline Time Spent with Patient Time attestation: Total time spent providing and/or coordinating discharge services: 50 minutes Exam Narrative: Exam Narrative: She is alert appears in no distress. She is observed to eat without difficulties. Breathing is unlabored. Thyroid gland is diffusely enlarged without tenderness. Const: Vital Signs, click to edit/add: Vital Signs - 24 hr 11/25/24 14:56 11/25/24 14:58 11/25/24 15:48 Temperature 98.5 F Pulse Rate 100 Pulse Rate [Pulse Oximeter] 96 Respiratory Rate 16 16 Blood Pressure [Le ft Arm] Blood Pressure [Ri ght Arm] 147/67 H Pulse Oximetry 94 94 Oxygen Delivery Me thod Room Air Room Air 11/25/24 19:00 11/25/24 23:00 11/25/24 23:00 Temperature 98.5 F Pulse Rate Pulse Rate [Pulse Oximeter] 92 96 Respiratory Rate 16 16 16 Blood Pressure [Le ft Arm] Blood Pressure [Ri ght Arm] 137/65 136/72 Pulse Oximetry 98 98 96 Oxygen Delivery Me thod Room Air Room Air Room Air 11/25/24 23:00 11/26/24 03:00 11/26/24 07:00 Temperature 98.5 F Pulse Rate 94 Pulse Rate [Pulse Oximeter] 92 Respiratory Rate 16 18 Blood Pressure [Le ft Arm] 133/56 L Blood Pressure [Ri ght Arm] Pulse Oximetry 97 96 Oxygen Delivery Me thod Room Air Room Air 11/26/24 07:00 11/26/24 08:30 Temperature Pulse Rate 96 Pulse Rate [Pulse Oximeter] 94 Respiratory Rate 18 Blood Pressure [Le ft Arm] Blood Pressure [Ri ght Arm] 149/69 H Pulse Oximetry 96 Oxygen Delivery Me thod Room Air Documenting provider has reviewed patient's vital signs: yes DS: Data Data Completed and Pending Labs on day of discharge: Labs from last 24 hours 11/26/24 11/24/24 05:46 06:53 WBC 8.51 RBC 3.37 L Hgb 8.9 L Hct 26.7 L MCV 79 L MCH 26 MCHC 33 Plt Count 224 Sodium 138 Potassium 3.6 Chloride 107 Carbon Dioxide 24 Anion Gap 7 BUN 8 Creatinine 0.3 L Estimated Creat Clear 237.13 Estimated GFR 151 Glucose 84 Calcium 10.0 Ionized Calcium Moira 1.33 H Total Bilirubin 1.2 AST 49 H ALT 67 H Alkaline Phosphatase 76 Total Protein 5.9 L Albumin 3.2 L Free T4 6.41 H T3 Pending >651 H Free T3 pg/dL Pending Imaging US - abdomen: Radiologist's impression: INDICATION: Abnormal levels of serum enzymes COMPARISON: none TECHNIQUE: Real time centeno scale imaging and color Doppler analysis was performed of the right upper quadrant. FINDINGS: The patient`s liver is of normal size and has uniform echogenicity. There is a normal appearance of the hepatic IVC and proximal abdominal aorta. There is no evidence of ascites. The gallbladder is of normal size and there is no evidence of intraluminal stones or sludge. The gallbladder wall measures 2 mm in thickness. The common bile duct is of normal size and measures 5 mm in diameter at the level of the rupal hepatis. The pancreas appears normal. There is no evidence of a stone or hydronephrosis within the right kidney. The right kidney measures 11.7 cm in length. IMPRESSION: Normal right upper quadrant ultrasound. Thyroid ultrasound: Radiologist's impression: INDICATION: ABNORMAL TSH, ELEVATED CALCIUM, NECK FULLNESS COMPARISON: none TECHNIQUE: Centeno scale and color Doppler images were acquired of the thyroid gland. FINDINGS: The thyroid gland demonstrates heterogeneous echogenicity and is enlarged. The right lobe measures 7.4 x 2.8 x 3.5 cm and the left lobe measures 5.8 x 2.3 x 2.8 cm in size. The isthmus measures 1.4 cm. There are no suspicious masses or nodules. The color Doppler images demonstrate diffusely increased vascularity. There is no evidence of cervical lymphadenopathy or parathyroid mass. IMPRESSION: Enlarged and hypervascular thyroid. Discharge Plan Discharge Disposition: Home, Self-Care Date of Admission: 11/24/24 10:12 Attending Provider on Discharge: Mirza Quintero Primary Care Provider: Aaliyah Woodson Condition: Improved Anticipated Discharge Date/Time: 11/26/24 15:22 Discharge Medications: New Cholestyramine Light 4 gram powder 4 g PO BID Qty: 210 2RF Rx Instructions: administer w/meal; avoid other meds within 1hr before or 4-6hr after dose ondansetron 4 mg tablet,disintegrating 4 mg PO TID Qty: 30 0RF Rx Instructions: Take as needed and take 30-60 minutes before cholestyramine Continued escitalopram oxalate 10 mg tablet 10 mg PO DAILY Qty: 30 0RF lorazepam 1 mg tablet 1 mg PO BID PRN (Reason: anxiety) Qty: 20 0RF ondansetron 4 mg tablet,disintegrating 4 mg PO Q8H PRN (Reason: nausea and vomiting) Qty: 7 0RF rimegepant 75 mg tablet,disintegrating 75 mg PO DAILY PRN Rx Instructions: Take 1 Tablet by mouth one time as needed for Migraine for up to 1 dose. Changed methimazole 10 mg tablet 30 mg PO BID Qty: 180 2RF propranolol 20 mg tablet 40 mg PO BID Qty: 60 2RF Discharge Orders: Discharge Order (Routine); Ordered 11/26/24 Ordered By: Mirza Quintero Patient Education: Methimazole (By mouth), Hyperthyroidism (DC), Thyroid Function Test (GEN), Autoimmune Thyroid Disorders (DC), Graves Disease (DC) Activity Detail: Return to [facility] lab on ThursdayNovember 28 for lab tests and then see Dr. Quintero on the medical-surgical floor Discharge Diet: Regular Follow Up Appointments: Aaliyah Woodson, CASING WRINGER OPERATOR, PLAYER SERVICES REPRESENTATIVE [Primary Care Provider, Family Practice] Forms: [facility] Info Instructions
[2024-11-26 15:00] VITALS: RESP 18
--- NOTE | 2024-11-26 18:17 | PC.NURSE ---
Discharge - Pt alert, oriented, cooperative. Up independently in room, family at bedside. Pt denied pain, SOB, n/v. Reported having loose stools, given medication per MAR with pt reporting improvement. Pt observed to ambulate in halls, reported poor appetite but was receptive to encouragement from medical staff and family. Pt noted to have improved appetite later in shift. D/C education provided to pt and significant other. Both verbalized understanding of medication administration education and follow up instructions. IV removed with catheter intact. Pt d/c to home via wheelchair with significant other at approximately 1640.
[2024-11-29 02:51] LABS: Free T3 12.4 pg/mL (2.5-4.3)
--- NOTE | 2024-11-29 12:22 | PM.EN ---
Chart Event Note Time Seen by Provider: : Date Seen: 11/29/24 Chart Event Note: 24-year-old female with thyrotoxicosis seen in followup of outpatient labs. Patient is generally feeling better. Her appetite is improved. Her oral intake is improved. Her diarrhea has resolved. She has continued to take her medications except her cholestyramine which she had trouble getting filled at the pharmacy. She has no other concerns. Blood pressure is 120/64 and pulse is 79. I review her blood pressure and pulse monitoring from home and her numbers are similar to this and consistently normal. Labs from today are noted. Unfortunately her calcium is increased to 11.7. I have recommended that we give her IV fluid now and recheck her labs in 3 days. After discussion of options for treatment of hypercalcemia she agrees.
== END 2024-11-26 16:40 | disposition home or self-care (01) | DRG 424 ==
LOC: ED 12:42 → MEDSURG 18:00
PROVIDERS: Physician Assistant; Student in an Organized Health Care Education/Training Program; Admitting Provider Internal Medicine; Emergency Provider Family Medicine; PCP Nurse Practitioner Family; Visit Provider Internal Medicine
DX: E05.00 Thyrotoxicosis with diffuse goiter without thyrotoxic crisis or storm (principal); E83.52 Hypercalcemia; D50.9 Iron deficiency anemia, unspecified; R00.0 Tachycardia, unspecified; R74.8 Abnormal levels of other serum enzymes; R63.4 Abnormal weight loss; R19.7 Diarrhea, unspecified; G43.909 Migraine, unspecified, not intractable, without status migrainosus; F33.9 Major depressive disorder, recurrent, unspecified; F41.1 Generalized anxiety disorder; R22.1 Localized swelling, mass and lump, neck
CPT/HCPCS: 36415; 80048; 80053; 80076; 82310; 82330; 82550; 83540; 83550; 83605; 84100; 84439; 84443; 84480; 84481; 84484; 84703; 85025; 85027; 93005; 94761; 99285; A9270; G0378; J0630; J2405; J7030; J7120